=== PATIENT | male | born 1930 | race Caucasian/White ===

== ENCOUNTER → 2016-03-31 | Outpatient (CLI) | payer MEDICARE, BC ==
[2016-03-31 13:27] LABS: ABSOLUTE EOSINOPHILS # (AUTO) 0.1 10^3/uL (0.0-0.6); ABSOLUTE LYMPHOCYTES (AUTO) 2.3 10^3/uL (0.5-4.7); ABSOLUTE MONOCYTES (AUTO) 0.5 10^3/uL (0.1-1.4); ABSOLUTE NEUT (AUTO) 3.2 10^3/uL (1.7-8.2); BASOPHILS % (AUTO) 0.5 % (0-2); EOSINOPHILS % (AUTO) 1.6 % (0-6); HEMATOCRIT 39.5 % (37.9-51.0); HEMOGLOBIN 13.2 g/dL (13.5-17.0); HGB HCT DIFFERENCE 0.1; LYMPHOCYTES % (AUTO) 37.1 % (13-45); MEAN CORPUSCULAR HEMOGLOBIN 30.5 pg (27.0-33.4); MEAN CORPUSCULAR HGB CONC 33.5 g/dL (32.0-36.0); MEAN CORPUSCULAR VOLUME 91 fl (80-97); MONOCYTES % (AUTO) 8.8 % (3-13); RED BLOOD COUNT 4.33 10^6/uL (4.35-5.55); RED CELL DISTRIBUTION WIDTH 13.1 % (11.5-14.0); WHITE BLOOD COUNT 6.1 10^3/uL (4.0-10.5)
[2016-03-31 15:27] LABS: CREATININE 1.73 mg/dL (0.52-1.25); URINE CREATININE 64.4 mg/dL (22-328)
[2016-04-01 09:59] LABS: PSA % FREE 52.5 % (.); PSA FREE 1.05 ng/mL
[2016-04-02 12:57] LABS: PROTEIN TOTAL UR 24HR 118.3 mg/24 hr (30.0-150.0)
== END ==
LOC: OD 11:55
PROVIDERS: ATTEND Urology
DX: N40.1 Benign prostatic hyperplasia with lower urinary tract symptoms (principal); I10 Essential (primary) hypertension; K58.9 Irritable bowel syndrome, unspecified; K59.00 Constipation, unspecified
CPT/HCPCS: 36415; 82575; 84154; 84156; 85025

== ENCOUNTER 2016-04-29 13:42 | Inpatient (IN) | payer MEDICARE, BC ==
[2016-04-29] MEDS ORDERED: NORMAL SALINE 1000 ML 1,000 ML IV ONE ×2 (14:02→16:00)
[2016-04-29] MEDS ORDERED: IPRATROPIUM/ALBUTEROL 0.5-2.5 MG/3 ML AMPUL NEB ONE (14:02)
--- NOTE | 2016-04-29 14:02 | ER Document Report ---
ED General - General Time seen by provider: 13:55 Mode of Arrival: Medic Information source: Patient TRAVEL OUTSIDE OF THE [place] IN LAST 30 DAYS: No - HPI Onset: Other - see HPI note Associated symptoms: Productive cough, Rhinnorhea, Weakness <SKYLER LIMA - Last Filed: 04/29/16 14:22> <MICHELLE GARZA - Last Filed: 04/30/16 17:30> - General Stated Complaint: FLU LIKE SYMPTOMS Notes: Patient is a 85 year old male presenting to the emergency with complaints of weakness, cough, and congestion. Patient was seen by a MD on Thursday and was given Augmentin. Patient has had a productive cough and some nasal rhinorrhea that started on Thursday. Patient has had some near-syncope events and weakness that has been progressingly getting worse. EMS states the patient's blood pressure was 90/50 but has increased some since then. Patient has a history of multiple MT, CAD, hypertension and hypercholesterolemia. Patient did not receive a flu vaccination this year. (SKYLER LIMA) - Related Data Allergies/Adverse Reactions: No Known Allergies Allergy (Verified 04/30/16 01:22) Home Medications: Current Home Medications Amox Tr/Potassium Clavulanate [Augmentin 875-125 mg Tablet] 1 tab PO Q12 [History] Dutasteride [Avodart] 0.5 mg PO DAILY 04/29/16 [History] Levofloxacin [Levaquin 500 mg Tablet] 500 mg PO DAILY 04/29/16 [History] Lisinopril [Prinivil] 20 mg PO Q12 04/29/16 [History] Metoprolol Tartrate [Lopressor 50 mg Tablet] 50 mg PO Q12 04/29/16 [History] Simvastatin [Zocor 40 mg Tablet] 40 mg PO QPM 04/29/16 [History] Tamsulosin HCl [Flomax 0.4 mg Cap.sr] 0.4 mg PO DAILY 04/29/16 [History] Aspirin [Ecotrin 81 mg EC Tablet] 81 mg PO DAILY 04/30/16 [History] Ciprofloxacin HCl [Cipro 500 mg Tablet] 1 tab PO BID 04/30/16 [History] Past Medical History - General Information source: Patient - Social History Smoking Status: Unknown if Ever Smoked Family History: None - Past Medical History Cardiac Medical History: Reports: Hx Coronary Artery Disease, Hx Heart Attack - several, no cath or stents, Hx Hypercholesterolemia, Hx Hypertension Past Surgical History: Reports: Hx Orthopedic Surgery - right ankle <SKYLER LIMA - Last Filed: 04/29/16 14:22> Review of Systems - Review of Systems Constitutional: No symptoms reported EENT: See HPI, Nose congestion Cardiovascular: No symptoms reported Respiratory: See HPI, Cough Gastrointestinal: No symptoms reported Genitourinary: No symptoms reported Male Genitourinary: No symptoms reported Musculoskeletal: No symptoms reported Skin: No symptoms reported Hematologic/Lymphatic: No symptoms reported Neurological/Psychological: See HPI, Weakness -: Yes All other systems reviewed and negative <SKYLER LIMA - Last Filed: 04/29/16 14:22> Physical Exam - Vital signs Interpretation: Hypotensive - with EMS 90/50 - General General appearance: Appears well, Alert In distress: Mild - HEENT Head: Normocephalic, Atraumatic Eyes: Normal Pupils: PERRL Mucous membranes: Dry - Respiratory Respiratory status: No respiratory distress Chest status: Nontender Breath sounds: Other - some wheezes and rhonchi throughout Chest palpation: Normal - Cardiovascular Rhythm: Regular Heart sounds: Normal auscultation Murmur: No - Abdominal Inspection: Normal Distension: No distension Bowel sounds: Normal Tenderness: Nontender Organomegaly: No organomegaly - Back Back: Normal, Nontender - Extremities General upper extremity: Normal inspection, Normal ROM, Normal strength General lower extremity: Normal inspection, Normal ROM, Normal strength. No: Edema - Neurological Neuro grossly intact: Yes Cognition: Normal Orientation: AAOx4 [place] Coma Scale Eye Opening: Spontaneous [place] Coma Scale Verbal: Oriented [place] Coma Scale Motor: Obeys Commands [place] Coma Scale Total: 15 Speech: Normal - Psychological Associated symptoms: Normal affect, Normal mood - Skin Skin Temperature: Warm Skin Moisture: Dry <SAMIASKYLER - Last Filed: 04/29/16 14:22> Course - Laboratory Result Diagrams: 04/29/16 14:05 04/29/16 14:05 <SKYLER ILMA - Last Filed: 04/29/16 14:22> - Laboratory Result Diagrams: 04/30/16 03:40 04/30/16 03:40 - Diagnostic Test Radiology reviewed: Image reviewed, Reports reviewed - Chest x-ray shows multifocal airspace disease most notably in the lingula and left lower lobe - EKG Interpretation by Me EKG shows normal: Sinus rhythm, [place], Intervals, QRS Complexes, ST-T Waves Rate: Normal - 77 Rhythm: NSR When compared to previous EKG there are: Previous EKG unavailable - Consults Dr. Hooper Time consulted: 18:00 Consulted provider: will come to ER <MICHELLE GARZA - Last Filed: 04/30/16 17:30> - Vital Signs Vital signs: Temp Pulse Resp BP Pulse Ox 98.2 F 86 16 151/54 H 98 04/30/16 08:37 04/30/16 14:14 04/30/16 14:14 04/30/16 08:37 04/30/16 14:14 - Laboratory Laboratory results interpreted by me: 04/29/16 04/29/16 14:05 14:05 RBC 4.07 L Hgb 12.3 L Hct 37.0 L Plt Count 137 L Monocytes % 15.7 H Carbon Dioxide 21 L BUN 46 H Creatinine 2.16 H Est GFR ( Amer) 35 L Est GFR (Non-Af Amer) 29 L Albumin 3.4 L Critical Care Note - Critical Care Note Total time excluding time spent on procedures (mins): 35 <MICHELLE GARZA - Last Filed: 04/30/16 17:30> Discharge <SKYLER LIMA - Last Filed: 04/29/16 14:22> - Discharge Admitting Provider: Hospitalist Unit Admitted: Telemetry <MICHELLE GARZA - Last Filed: 04/30/16 17:30> - Discharge Clinical Impression: Influenza-like illness, Dehydration, Renal insufficiency, Multifocal pneumonia Hypotension Qualifiers: Hypotension type: unspecified hypotension type Qualified Code(s): I95.9 - Hypotension, unspecified Condition: Stable Disposition: ADMITTED INPATIENT Scribe Attestation: 04/29/16 18:08 I personally performed the services described in the documentation, reviewed and edited the documentation which was dictated to the scribe in my presence, and it accurately records my words and actions. (MICHELLE GARZA) Scribe Documentation - Scribe Written by Scralphonso:: Skyler Lima 04/29/16 14:20 acting as scribe for :: Lorraine <EDGREN,SKYLER - Last Filed: 04/29/16 14:22>
[2016-04-29 14:37] LABS: ABSOLUTE LYMPHOCYTES (AUTO) 1.7 10^3/uL (0.5-4.7); ABSOLUTE NEUT (AUTO) 3.5 10^3/uL (1.7-8.2); BASOPHILS % (AUTO) 0.2 % (0-2); EOSINOPHILS % (AUTO) 0.2 % (0-6); HEMOGLOBIN 12.3 g/dL (13.5-17.0); HGB HCT DIFFERENCE -0.1; LYMPHOCYTES % (AUTO) 27.5 % (13-45); MEAN CORPUSCULAR HEMOGLOBIN 30.1 pg (27.0-33.4); MEAN CORPUSCULAR HGB CONC 33.2 g/dL (32.0-36.0); MEAN CORPUSCULAR VOLUME 91 fl (80-97); MONOCYTES % (AUTO) 15.7 % (3-13); RED BLOOD COUNT 4.07 10^6/uL (4.35-5.55); RED CELL DISTRIBUTION WIDTH 13.4 % (11.5-14.0); SEGMENTED NEUTROPHILS % (AUTO) 56.4 % (42-78); WHITE BLOOD COUNT 6.3 10^3/uL (4.0-10.5)
[2016-04-29 14:44] LABS: ALANINE AMINOTRANSFERASE 28 U/L (21-72); ALBUMIN 3.4 g/dL (3.5-5.0); ALKALINE PHOSPHATASE 78 U/L (38-126); ANION GAP 13 (5-19); ASPARTATE AMINO TRANSFERASE 36 U/L (17-59); BILIRUBIN,TOTAL 0.4 mg/dL (0.2-1.3); BLOOD UREA NITROGEN 46 mg/dL (7-20); CALCIUM 8.7 mg/dL (8.4-10.2); CARBON DIOXIDE 21 mmol/L (22-30); CHLORIDE 106 mmol/L (98-107); CREATININE RESULT 2.16 mg/dL (0.52-1.25); GLUCOSE 109 mg/dL (75-110); POTASSIUM 4.7 mmol/L (3.6-5.0); SODIUM 139.6 mmol/L (137-145); TOTAL PROTEIN 6.3 g/dL (6.3-8.2)
[2016-04-29 16:02] LABS: ADD ON TESTING BLD IN LAB ACKNOWLEDGE
[2016-04-29 16:20] LABS: CREATINE KINASE 133 U/L (55-170)
[2016-04-29 16:50] LABS: CREATINE KINASE MB 1.03 ng/mL (<4.55)
[2016-04-29 16:51] LABS: TROPONIN I < 0.012 ng/mL
[2016-04-29] MEDS ORDERED: CEFTRIAXONE 1 GM/D5W RTU 50 ML IV ONE (17:48)
[2016-04-29] MEDS ORDERED: AZITHROMYCIN 250 MG TABLET PO ONE (17:49)
[2016-04-29] MEDS ORDERED: ALBUTEROL SULFATE 0.083% NEB 2.5 MG/3 ML AMPUL NEB ONE (17:49)
--- NOTE | 2016-04-29 18:22 | EKG REPORT ---
SEVERITY:- ABNORMAL ECG - NORMAL SINUS RHYTHM NONSPECIFIC ST-T CHANGES- INFERIOR LEADS : Confirmed by: Zacarias Ugarte MD 29-Apr-2016 18:21:30
[2016-04-29] MEDS ORDERED: NORMAL SALINE 1000 ML 1,000 ML IV PRN (18:45)
[2016-04-29] MEDS ORDERED: LEVALBUTEROL HCL NEB 1.25 MG/3 ML AMPUL NEB PRN (18:45)
[2016-04-29] MEDS ORDERED: ONDANSETRON HCL INJ/PF 4 MG/2 ML SDV IV PRN (18:45)
[2016-04-29] MEDS ORDERED: PHARMACY COMMUNICATION ORDER MC NR (19:00)
--- NOTE | 2016-04-29 20:14 | PDOC H&P ---
History of Present Illness Admission Date/PCP: 04/29/16 18:38 JUDITH COBURN, PSYCHOLOGICAL TESTS SALES AGENT-C History of Present Illness: ALLAN PAUL is a 85 year old male who presents with syncope. Patient reports he started feeling ill on Thursday and on Thursday had a fever of up to 102.4. He went to his primary care physician and was given Augmentin. Patient continued to have a cough which is productive of clear to greenish sputum. Patient then reported today he wasn't feeling well and was sitting in a chair he subsequently syncopized in the presence of his daughter and had a positive loss of consciousness with a loss of bladder function without any generalized tonic-clonic activity noted. She reports that she helped him to the floor from a chair at the direction of the of 911. She reports the whole episode lasted approximately 5 minutes. After patient awoke he had an episode of diarrhea. There is no hematochezia or melena. He has had some nausea and some slight abdominal tenderness. He was slightly altered afterwards lasting only a minute or 2. She did report that his lip was turning blue during this episode. Patient is found to have pneumonia and have failed outpatient Augmentin here in the emergency department. He is referred to hospital service for admission. Past Medical History Past Medical History: Chronic kidney disease, coronary artery disease, myocardial infarction, melanoma of left ear, hypertension, BPH Cardiac Medical History: Reports: Coronary Artery Disease, Myocardial Infarction - several, no cath or stents, Hyperlipidema, Hypertension Past Surgical History Past Surgical History: Reports: Orthopedic Surgery - right ankle, Other - Left ear melanoma Social History Smoking Status: Never Smoker Frequency of Alcohol Use: None Hx Recreational Drug Use: No Hx Prescription Drug Abuse: No - Advance Directive Resuscitation Status: Do Not Resuscitate Surrogate healthcare decision maker:: Chapis Dasilva, daughter Family History Family History: CAD, Malignancy Parental Family History Reviewed: Yes Children Family History Reviewed: Yes Sibling(s) Family History Reviewed.: Yes Medication/Allergy Home Medications: Amox Tr/Potassium Clavulanate [Augmentin 875-125 mg Tablet] 1 tab PO Q12 Dutasteride [Avodart] 0.5 mg PO DAILY 04/29/16 Levofloxacin [Levaquin 500 mg Tablet] 500 mg PO DAILY 04/29/16 Lisinopril [Prinivil] 20 mg PO Q12 04/29/16 Metoprolol Tartrate [Lopressor 50 mg Tablet] 50 mg PO Q12 04/29/16 Simvastatin [Zocor 40 mg Tablet] 40 mg PO QPM 04/29/16 Tamsulosin HCl [Flomax 0.4 mg Cap.sr] 0.4 mg PO DAILY 04/29/16 Allergies/Adverse Reactions: No Known Allergies Allergy (Unverified 06/10/15 14:33) Review of Systems Constitutional: PRESENT: chills, fatigue, fever(s), weakness. ABSENT: anorexia , headache(s), night sweats, weight gain, weight loss Eyes: ABSENT: visual disturbances Ears: ABSENT: hearing changes Cardiovascular: ABSENT: chest pain, dyspnea on exertion, edema, orthropnea, palpitations Respiratory: PRESENT: cough, dyspnea, sputum. ABSENT: hemoptysis Gastrointestinal: PRESENT: abdominal pain, diarrhea, nausea. ABSENT: constipation, hematemesis, hematochezia, melena, vomiting Genitourinary: PRESENT: difficulty urinating. ABSENT: dysuria, hematuria Musculoskeletal: ABSENT: joint swelling Integumentary: ABSENT: rash, wounds Neurological: PRESENT: syncope. ABSENT: abnormal gait, abnormal movements, abnormal speech, confusion, convulsions, dizziness, focal weakness Psychiatric: ABSENT: anxiety, depression, homidical ideation, suicidal ideation Endocrine: ABSENT: cold intolerance, heat intolerance, polydipsia, polyuria Hematologic/Lymphatic: ABSENT: easy bleeding, easy bruising Physical Exam Vital Signs: Temp Pulse Resp BP Pulse Ox 20 143/69 H 94 04/29/16 19:00 04/29/16 16:01 04/29/16 19:00 General appearance: PRESENT: mild distress - Ill-appearing, well-developed, well -nourished Head exam: PRESENT: atraumatic, normocephalic Eye exam: PRESENT: conjunctiva pink, EOMI, PERRLA. ABSENT: scleral icterus Ear exam: PRESENT: normal external ear exam, TM's normal bilaterally Mouth exam: PRESENT: moist, neck supple, tongue midline Throat exam: PRESENT: post pharyngeal erythema. ABSENT: tonsillar erythema, tonsillar exudate, tonsillogmegaly Neck exam: PRESENT: full ROM. ABSENT: JVD, lymphadenopathy, tenderness, thyromegaly, tracheal deviation Respiratory exam: PRESENT: prolonged expiratory phas, rhonchi - Bilateral, symmetrical, tachypnea, unlabored, wheezes - Bilateral. ABSENT: crackles, decreased breath sounds, rales Cardiovascular exam: PRESENT: RRR, +S1, +S2. ABSENT: diastolic murmur, gallop, rubs, systolic murmur Pulses: PRESENT: normal dorsalis pedis pul Vascular exam: PRESENT: normal capillary refill GI/Abdominal exam: PRESENT: normal bowel sounds, soft. ABSENT: distended, firm , guarding, mass, organolmegaly, rebound, rigid, tenderness Rectal exam: PRESENT: deferred Extremities exam: PRESENT: full ROM. ABSENT: calf tenderness, clubbing, pedal edema Neurological exam: PRESENT: alert, awake, oriented to person, oriented to place , oriented to time, oriented to situation, CN II-XII grossly intact. ABSENT: motor sensory deficit Psychiatric exam: PRESENT: appropriate affect, normal mood. ABSENT: homicidal ideation, suicidal ideation Skin exam: PRESENT: dry, intact, warm. ABSENT: cyanosis, rash Results Impressions: Chest X-Ray 04/29/16 14:01 IMPRESSION: PATCHY MULTIFOCAL AIRSPACE DISEASE ABOVE COMPATIBLE WITH PNEUMONIA. RECOMMEND FOLLOWUP RADIOGRAPHS IN 4 TO 6 WEEKS TO ENSURE RESOLUTION. Assessment & Plan - Diagnosis (1) Multifocal pneumonia Is this a current diagnosis for this admission?: YesPlan: We'll place patient on Levaquin and Rocephin. Scheduled nebulized treatments. Sputum culture. Concern is patient did fail outpatient Augmentin. (2) Acute on chronic renal failure Is this a current diagnosis for this admission?: YesPlan: Patient is artery receive 2 L in the emergency department. His baseline creatinine is approximately 1.5-1.7. Will give gentle resuscitation with normal saline of 43 mils an hour. (3) Syncope Qualifiers: Syncope type: vasovagal syncope Qualified Code(s): R55 - Syncope and collapse Is this a current diagnosis for this admission?: YesPlan: Patient likely suffered from vasovagal syncope or orthostatic syncope due to his dehydration. Patient only lost control of his bowels after waking. Patient does have chronic prostatic issues which makes his urinary loss more unreliable. His daughter witnessed episode and no isolated tonic-clonic activity was noted. (4) Diarrhea Qualifiers: Diarrhea type: unspecified type Qualified Code(s): R19.7 - Diarrhea , unspecified Is this a current diagnosis for this admission?: YesPlan: Place patient on Bacid. Obtain C. difficile. (5) Dehydration Is this a current diagnosis for this admission?: YesPlan: Gentle rehydration (6) Hypotension Qualifiers: Hypotension type: unspecified hypotension type Qualified Code(s): I95.9 - Hypotension, unspecified Is this a current diagnosis for this admission?: Yes - Time Time Spent: 50 to 70 Minutes Medications reviewed and adjusted accordingly: Yes - Inpatient Certification Based on my medical assessment, after consideration of the patient's comorbidities, presenting symptoms, or acuity I expect that the services needed warrant INPATIENT care.: Yes I certify that my determination is in accordance with my understanding of Medicare's requirements for reasonable and necessary INPATIENT services [42 CFR 412.3e].: Yes Medical Necessity: Failure to Improve With Outpatient Therapy, Need for Nebulizer Therapy and Monitoring of Response, Need for IV Antibiotics Post Hospital Care: D/C Inside Sales Consultant Documentation
[2016-04-29 20:31] LABS: APPEARANCE,URINE CLEAR; BILIRUBIN,URINE NEGATIVE (NEGATIVE); GLUCOSE, URINE NEGATIVE (NEGATIVE); KETONES,URINE TRACE mg/dL (NEGATIVE); LEUKOCYTE ESTERASE,URINE NEGATIVE (NEGATIVE); NITRITE,URINE NEGATIVE (NEGATIVE); PROTEIN,URINE NEGATIVE (NEGATIVE); UROBILINOGEN,URINE NEGATIVE mg/dL (<2.0)
[2016-04-29] MEDS: IPRATROPIUM/ALBUTEROL 0.5-2.5 MG/3 ML AMPUL NEB SCH (20:36)
[2016-04-29] MEDS: GUAIFENESIN 600 MG TABLET.SA PO SCH (21:38)
[2016-04-29] MEDS: HEPARIN SOD (PORCINE) 5,000 UNIT/ML 1 ML SYRINGE SUBCUT SCH (21:39)
[2016-04-29] MEDS ORDERED: LEVOFLOXACIN 750 MG/D5W RTU 750 MG/150 ML RTUPB IV SCH (22:00)
[2016-04-29 22:32] LABS: CREATINE KINASE MB 1.06 ng/mL (<4.55)
[2016-04-29 22:35] LABS: TROPONIN I < 0.012 ng/mL
[2016-04-30] MEDS ORDERED: INFLUENZA ADLT QUAD (36MOS+) 2016-17 VAC 0.5 ML SYR IM PRN (01:02)
[2016-04-30 03:55] LABS: ABSOLUTE LYMPHOCYTES (AUTO) 1.4 10^3/uL (0.5-4.7); ABSOLUTE MONOCYTES (AUTO) 0.7 10^3/uL (0.1-1.4); ABSOLUTE NEUT (AUTO) 2.3 10^3/uL (1.7-8.2); BASOPHILS % (AUTO) 0.2 % (0-2); EOSINOPHILS % (AUTO) 0.1 % (0-6); HEMATOCRIT 31.3 % (37.9-51.0); HEMOGLOBIN 10.6 g/dL (13.5-17.0); HGB HCT DIFFERENCE 0.5; LYMPHOCYTES % (AUTO) 32.1 % (13-45); MEAN CORPUSCULAR HEMOGLOBIN 30.5 pg (27.0-33.4); MEAN CORPUSCULAR VOLUME 90 fl (80-97); MONOCYTES % (AUTO) 15.7 % (3-13); RED CELL DISTRIBUTION WIDTH 13.7 % (11.5-14.0); SEGMENTED NEUTROPHILS % (AUTO) 51.9 % (42-78); WHITE BLOOD COUNT 4.5 10^3/uL (4.0-10.5)
[2016-04-30 04:12] LABS: ANION GAP 8 (5-19); BLOOD UREA NITROGEN 36 mg/dL (7-20); CALCIUM 8.1 mg/dL (8.4-10.2); CARBON DIOXIDE 22 mmol/L (22-30); CHLORIDE 110 mmol/L (98-107); CREATINE KINASE 186 U/L (55-170); CREATININE RESULT 1.78 mg/dL (0.52-1.25); GLUCOSE 97 mg/dL (75-110); MAGNESIUM 1.7 mg/dL (1.6-2.3); PHOSPHORUS 3.2 mg/dL (2.5-4.5); POTASSIUM 4.4 mmol/L (3.6-5.0); SODIUM 140.4 mmol/L (137-145)
[2016-04-30 04:25] LABS: CREATINE KINASE MB 1.55 ng/mL (<4.55)
[2016-04-30 04:32] LABS: TROPONIN I 0.055 ng/mL
[2016-04-30] MEDS: HEPARIN SOD (PORCINE) 5,000 UNIT/ML 1 ML SYRINGE SUBCUT SCH ×3 (06:14→22:09)
[2016-04-30] MEDS: IPRATROPIUM/ALBUTEROL 0.5-2.5 MG/3 ML AMPUL NEB SCH ×3 (08:16→19:56)
[2016-04-30] MEDS: GUAIFENESIN 600 MG TABLET.SA PO SCH ×2 (09:39→22:07)
[2016-04-30 11:23] LABS: CREATINE KINASE MB 1.92 ng/mL (<4.55); TROPONIN I 0.054 ng/mL
[2016-04-30] MEDS ORDERED: CEFTRIAXONE 1 GM/D5W RTU 1 GM/50 ML RTUPB IV SCH (18:00)
[2016-04-30] MEDS ORDERED: PREDNISONE 20 MG TABLET PO ONE (19:00)
[2016-04-30] MEDS: PIPERACILLIN SODIUM/TAZOBACTAM 3.375 GM in NORMAL SALINE 100 ML IV SCH (20:31)
[2016-04-30] MEDS ORDERED: (PENDING PHARMACY ID) (Lisinopril [Prinivil] 20 MG) PO SCH (22:00)
[2016-04-30] MEDS: METOPROLOL TARTRATE 50 MG TABLET PO SCH (22:07)
[2016-04-30] MEDS: LISINOPRIL 10 MG TABLET PO SCH (22:08)
[2016-05-01] MEDS: HEPARIN SOD (PORCINE) 5,000 UNIT/ML 1 ML SYRINGE SUBCUT SCH ×3 (05:09→21:58)
[2016-05-01] MEDS ORDERED: AMLODIPINE BESYLATE 5 MG TABLET PO ONE (05:15)
[2016-05-01] MEDS: PIPERACILLIN SODIUM/TAZOBACTAM 3.375 GM in NORMAL SALINE 100 ML IV SCH (05:29)
[2016-05-01 06:35] LABS: ABSOLUTE LYMPHOCYTES (AUTO) 0.7 10^3/uL (0.5-4.7); ABSOLUTE MONOCYTES (AUTO) 0.3 10^3/uL (0.1-1.4); ABSOLUTE NEUT (AUTO) 1.7 10^3/uL (1.7-8.2); BASOPHILS % (AUTO) 0.1 % (0-2); HEMATOCRIT 35.2 % (37.9-51.0); HEMOGLOBIN 11.8 g/dL (13.5-17.0); HGB HCT DIFFERENCE 0.2; LYMPHOCYTES % (AUTO) 26.5 % (13-45); MEAN CORPUSCULAR HEMOGLOBIN 30.1 pg (27.0-33.4); MEAN CORPUSCULAR HGB CONC 33.6 g/dL (32.0-36.0); MEAN CORPUSCULAR VOLUME 90 fl (80-97); MONOCYTES % (AUTO) 10.8 % (3-13); RED BLOOD COUNT 3.93 10^6/uL (4.35-5.55); RED CELL DISTRIBUTION WIDTH 13.9 % (11.5-14.0); SEGMENTED NEUTROPHILS % (AUTO) 62.6 % (42-78)
[2016-05-01 06:43] LABS: ANION GAP 11 (5-19); BLOOD UREA NITROGEN 22 mg/dL (7-20); CALCIUM 8.8 mg/dL (8.4-10.2); CARBON DIOXIDE 20 mmol/L (22-30); CHLORIDE 108 mmol/L (98-107); CREATININE RESULT 1.59 mg/dL (0.52-1.25); GLUCOSE 148 mg/dL (75-110); POTASSIUM 5.1 mmol/L (3.6-5.0); SODIUM 139.2 mmol/L (137-145)
[2016-05-01 06:50] LABS: WHITE BLOOD COUNT 2.7 10^3/uL (4.0-10.5)
[2016-05-01] MEDS: IPRATROPIUM/ALBUTEROL 0.5-2.5 MG/3 ML AMPUL NEB SCH ×3 (08:08→19:48)
[2016-05-01] MEDS ORDERED: PHARMACY COMMUNICATION ORDER MC NR (08:15)
--- NOTE | 2016-05-01 08:17 | PDOC PROGRESS REPORT ---
Subjective Progress Note for:: 04/30/16 Subjective:: Patient seen earlier today on morning rounds. Patient reports he's feeling better than yesterday. Patient denies chest pain, abdominal pain, nausea, vomiting, fevers, diarrhea, constipation, headache, new onset weakness. Physical Exam Vital Signs: Temp Pulse Resp BP Pulse Ox 98.2 F 86 16 151/54 H 98 04/30/16 08:37 04/30/16 14:14 04/30/16 14:14 04/30/16 08:37 04/30/16 14:14 Intake & Output 04/29/16 04/30/16 05/01/16 06:59 06:59 06:59 Intake Total 258 585 Output Total 600 500 Balance -342 85 Weight 70.6 kg Exam: General: Awake alert and oriented x3, no acute respiratory distress HEENT: AT/NC, PERRL, EOMI, oropharynx is moist, pink, no scleral icterus, no conjunctival injection Neck: No JVD, trachea midline Chest: Bilateral end expiratory wheezes, scattered rhonchi CV: Regular rate and rhythm, normal S1 and S2, no murmur, rub, or gallop Abdomen: Soft, nontender to palpation, nondistended, active bowel sounds; no rebound, rigidity, or guarding Extremities: No cyanosis, clubbing or edema Neuro: Cranial nerves II through XII are grossly intact without focal deficits; awake alert and oriented x3 Psych: Normal mood and affect Results Laboratory Results: 04/30/16 03:40 04/30/16 03:40 04/29/16 04/30/16 04/30/16 20:20 03:40 03:40 WBC 4.5 RBC 3.50 L Hgb 10.6 L Hct 31.3 L MCV 90 MCH 30.5 MCHC 34.0 RDW 13.7 Plt Count 105 L Seg Neutrophils % 51.9 Lymphocytes % 32.1 Monocytes % 15.7 H Eosinophils % 0.1 Basophils % 0.2 Absolute Neutrophils 2.3 Absolute Lymphocytes 1.4 Absolute Monocytes 0.7 Absolute Eosinophils 0.0 Absolute Basophils 0.0 Sodium 140.4 Potassium 4.4 Chloride 110 H Carbon Dioxide 22 Anion Gap 8 BUN 36 H Creatinine 1.78 H Est GFR ( Amer) 44 L Est GFR (Non-Af Amer) 36 L Glucose 97 Calcium 8.1 L Phosphorus 3.2 Magnesium 1.7 TSH Urine Color YELLOW Urine Appearance CLEAR Urine pH 5.0 Ur Specific [place] 1.010 Urine Protein NEGATIVE Urine Glucose (UA) NEGATIVE Urine Ketones TRACE H Urine Blood SMALL H Urine Nitrite NEGATIVE Ur Leukocyte Esterase NEGATIVE Urine WBC (Auto) 1 Urine RBC (Auto) 0 04/30/16 03:40 WBC RBC Hgb Hct MCV MCH MCHC RDW Plt Count Seg Neutrophils % Lymphocytes % Monocytes % Eosinophils % Basophils % Absolute Neutrophils Absolute Lymphocytes Absolute Monocytes Absolute Eosinophils Absolute Basophils Sodium Potassium Chloride Carbon Dioxide Anion Gap BUN Creatinine Est GFR ( Amer) Est GFR (Non-Af Amer) Glucose Calcium Phosphorus Magnesium TSH 1.82 Urine Color Urine Appearance Urine pH Ur Specific [place] Urine Protein Urine Glucose (UA) Urine Ketones Urine Blood Urine Nitrite Ur Leukocyte Esterase Urine WBC (Auto) Urine RBC (Auto) 04/29/16 04/29/16 04/30/16 21:16 21:16 03:40 Creatine Kinase 135 CK-MB (CK-2) 1.06 1.55 Troponin I < 0.012 0.055 04/30/16 04/30/16 04/30/16 03:40 10:37 10:37 Creatine Kinase 186 H 286 H CK-MB (CK-2) 1.92 Troponin I 0.054 Impressions: Chest X-Ray 04/29/16 14:01 IMPRESSION: PATCHY MULTIFOCAL AIRSPACE DISEASE ABOVE COMPATIBLE WITH PNEUMONIA. RECOMMEND FOLLOWUP RADIOGRAPHS IN 4 TO 6 WEEKS TO ENSURE RESOLUTION. Assessment & Plan - Diagnosis (1) Multifocal pneumonia Is this a current diagnosis for this admission?: YesPlan: We'll place patient on Levaquin and Zosyn. Scheduled nebulized treatments. Sputum culture. Concern is patient did fail outpatient Augmentin. (2) Acute on chronic renal failure Is this a current diagnosis for this admission?: YesPlan: Improving. His baseline creatinine is approximately 1.5-1.7. Encourage po intake of fluid (3) Syncope Qualifiers: Syncope type: vasovagal syncope Qualified Code(s): R55 - Syncope and collapse Is this a current diagnosis for this admission?: YesPlan: Patient likely suffered from vasovagal syncope or orthostatic syncope due to his dehydration. Patient only lost control of his bowels after waking. Patient does have chronic prostatic issues which makes his urinary loss more unreliable. His daughter witnessed episode and no isolated tonic-clonic activity was noted. (4) Diarrhea Qualifiers: Diarrhea type: unspecified type Qualified Code(s): R19.7 - Diarrhea , unspecified Is this a current diagnosis for this admission?: YesPlan: none further (5) Dehydration Is this a current diagnosis for this admission?: Yes (6) Hypotension Qualifiers: Hypotension type: unspecified hypotension type Qualified Code(s): I95.9 - Hypotension, unspecified Is this a current diagnosis for this admission?: Yes - Time Time Spent with patient: 25-34 minutes Medications reviewed and adjusted accordingly: Yes
[2016-05-01] MEDS: METOPROLOL TARTRATE 50 MG TABLET PO SCH ×2 (09:52→21:54)
[2016-05-01] MEDS: DUTASTERIDE 0.5 MG CAPSULE PO SCH (09:53)
[2016-05-01] MEDS: PREDNISONE 20 MG TABLET PO SCH ×2 (09:53→17:31)
[2016-05-01] MEDS: DOCUSATE SODIUM 100 MG CAPSULE PO SCH ×2 (09:53→17:31)
[2016-05-01] MEDS: TAMSULOSIN HCL 0.4 MG CAP.SR.24H PO SCH (09:54)
[2016-05-01] MEDS: CEFEPIME 1 GM/D5W RTU 50 ML IV SCH ×2 (09:54→21:54)
[2016-05-01] MEDS: ASPIRIN 81 MG TABLET, ENT COATED PO SCH (09:54)
[2016-05-01] MEDS: GUAIFENESIN 600 MG TABLET.SA PO SCH ×2 (09:54→21:54)
[2016-05-01] MEDS: AZITHROMYCIN 250 MG TABLET PO SCH (09:54)
[2016-05-01] MEDS: LISINOPRIL 10 MG TABLET PO SCH ×2 (09:54→21:54)
[2016-05-01] MEDS: AMLODIPINE BESYLATE 5 MG TABLET PO SCH ×2 (09:55→21:54)
[2016-05-01 10:38] LABS: ANION GAP 13 (5-19); BLOOD UREA NITROGEN 23 mg/dL (7-20); CALCIUM 9.3 mg/dL (8.4-10.2); CARBON DIOXIDE 23 mmol/L (22-30); CHLORIDE 106 mmol/L (98-107); CREATININE RESULT 1.66 mg/dL (0.52-1.25); GLUCOSE 160 mg/dL (75-110); POTASSIUM 4.6 mmol/L (3.6-5.0); SODIUM 141.9 mmol/L (137-145)
--- NOTE | 2016-05-01 11:40 | Physician Advisory Note ---
Physician Advisor ProgressNote .: Pursuant to the [facility], I have reviewed the medical record for this patient. Physician Advisor Statement: Nice documentation overall, as usual. All I could add is: 1. Most likely type bacteria in the PNA = gram +? gram neg? ... 2. CKD = stage 3. CK
--- NOTE | 2016-05-01 19:31 | PDOC PROGRESS REPORT ---
Subjective Progress Note for:: 05/01/16 Subjective:: Patient seen later this morning on morning rounds. Patient reports he's feeling much better today. Patient's white count has gone down significantly on Zosyn. Patient denies chest pain, shortness of breath, abdominal pain, nausea, vomiting , fevers, chills, diarrhea, constipation, headache, new onset weakness. Physical Exam Vital Signs: Temp Pulse Resp BP Pulse Ox 97.7 F 55 L 16 182/68 H 93 05/01/16 04:05 05/01/16 04:05 05/01/16 04:05 05/01/16 04:05 05/01/16 04:05 Intake & Output 04/30/16 05/01/16 05/02/16 06:59 06:59 06:59 Intake Total 258 1951 Output Total 600 1700 Balance -342 251 Weight 70.6 kg 72.2 kg Exam: General: Awake alert and oriented x3, no acute respiratory distress HEENT: AT/NC, PERRL, EOMI, oropharynx is moist, pink, no scleral icterus, no conjunctival injection Neck: No JVD, trachea midline Chest: Light Bilateral end expiratory wheezes, occasional scattered rhonchi, overall improved CV: Regular rate and rhythm, normal S1 and S2, no murmur, rub, or gallop Abdomen: Soft, nontender to palpation, nondistended, active bowel sounds; no rebound, rigidity, or guarding Extremities: No cyanosis, clubbing or edema Neuro: Cranial nerves II through XII are grossly intact without focal deficits; awake alert and oriented x3 Psych: Normal mood and affect Results Laboratory Results: 05/01/16 05:50 05/01/16 05:50 05/01/16 05/01/16 05:50 05:50 WBC 2.7 L D RBC 3.93 L Hgb 11.8 L Hct 35.2 L MCV 90 MCH 30.1 MCHC 33.6 RDW 13.9 Plt Count 128 L Seg Neutrophils % 62.6 Lymphocytes % 26.5 Monocytes % 10.8 Eosinophils % 0.0 Basophils % 0.1 Absolute Neutrophils 1.7 Absolute Lymphocytes 0.7 Absolute Monocytes 0.3 Absolute Eosinophils 0.0 Absolute Basophils 0.0 Sodium 139.2 Potassium 5.1 H Chloride 108 H Carbon Dioxide 20 L Anion Gap 11 BUN 22 H Creatinine 1.59 H Est GFR ( Amer) 50 L Est GFR (Non-Af Amer) 41 L Glucose 148 H Calcium 8.8 04/29/16 04/29/16 04/30/16 21:16 21:16 03:40 Creatine Kinase 135 CK-MB (CK-2) 1.06 1.55 Troponin I < 0.012 0.055 04/30/16 04/30/16 04/30/16 03:40 10:37 10:37 Creatine Kinase 186 H 286 H CK-MB (CK-2) 1.92 Troponin I 0.054 Impressions: Chest X-Ray 04/29/16 14:01 IMPRESSION: PATCHY MULTIFOCAL AIRSPACE DISEASE ABOVE COMPATIBLE WITH PNEUMONIA. RECOMMEND FOLLOWUP RADIOGRAPHS IN 4 TO 6 WEEKS TO ENSURE RESOLUTION. Assessment & Plan - Diagnosis (1) Multifocal pneumonia Is this a current diagnosis for this admission?: YesPlan: Patient with community-acquired pneumonia. Have transition patient to azithromycin and cefepime. Patient apparently also failed Levaquin as an outpatient. Scheduled nebulized treatments. Sputum culture. Concern is patient did fail outpatient Augmentin and Levaquin. Repeat chest x-ray today. Send urine Legionella and pneumococcal antibodies. (2) Acute on chronic renal failure Is this a current diagnosis for this admission?: YesPlan: Improving. His baseline creatinine is approximately 1.5-1.7. Encourage po intake of fluid (3) Syncope Qualifiers: Syncope type: vasovagal syncope Qualified Code(s): R55 - Syncope and collapse Is this a current diagnosis for this admission?: YesPlan: Patient likely suffered from vasovagal syncope or orthostatic syncope due to his dehydration. Patient only lost control of his bowels after waking. Patient does have chronic prostatic issues which makes his urinary loss more unreliable. His daughter witnessed episode and no isolated tonic-clonic activity was noted. (4) Diarrhea Qualifiers: Diarrhea type: unspecified type Qualified Code(s): R19.7 - Diarrhea , unspecified Is this a current diagnosis for this admission?: Yes (5) Dehydration Is this a current diagnosis for this admission?: Yes (6) Hypotension Qualifiers: Hypotension type: unspecified hypotension type Qualified Code(s): I95.9 - Hypotension, unspecified Is this a current diagnosis for this admission?: Yes - Time Time Spent with patient: 25-34 minutes Medications reviewed and adjusted accordingly: Yes Anticipated discharge: Home Within: within 48 hours
[2016-05-02] MEDS: HEPARIN SOD (PORCINE) 5,000 UNIT/ML 1 ML SYRINGE SUBCUT SCH ×3 (05:46→21:30)
[2016-05-02 08:21] LABS: ABSOLUTE LYMPHOCYTES (AUTO) 1.2 10^3/uL (0.5-4.7); ABSOLUTE MONOCYTES (AUTO) 0.5 10^3/uL (0.1-1.4); ABSOLUTE NEUT (AUTO) 3.7 10^3/uL (1.7-8.2); BASOPHILS % (AUTO) 0.1 % (0-2); HEMATOCRIT 36.7 % (37.9-51.0); HEMOGLOBIN 12.3 g/dL (13.5-17.0); HGB HCT DIFFERENCE 0.2; LYMPHOCYTES % (AUTO) 21.7 % (13-45); MEAN CORPUSCULAR HGB CONC 33.5 g/dL (32.0-36.0); MEAN CORPUSCULAR VOLUME 90 fl (80-97); MONOCYTES % (AUTO) 10.1 % (3-13); RED CELL DISTRIBUTION WIDTH 13.7 % (11.5-14.0); SEGMENTED NEUTROPHILS % (AUTO) 68.1 % (42-78); WHITE BLOOD COUNT 5.4 10^3/uL (4.0-10.5)
[2016-05-02 09:00] LABS: ANION GAP 11 (5-19); BLOOD UREA NITROGEN 29 mg/dL (7-20); CALCIUM 9.2 mg/dL (8.4-10.2); CARBON DIOXIDE 20 mmol/L (22-30); CHLORIDE 107 mmol/L (98-107); CREATININE RESULT 1.54 mg/dL (0.52-1.25); GLUCOSE 129 mg/dL (75-110); POTASSIUM 4.6 mmol/L (3.6-5.0); SODIUM 137.5 mmol/L (137-145)
[2016-05-02] MEDS: IPRATROPIUM/ALBUTEROL 0.5-2.5 MG/3 ML AMPUL NEB SCH ×3 (09:09→20:08)
[2016-05-02] MEDS: DOCUSATE SODIUM 100 MG CAPSULE PO SCH ×2 (09:47→17:57)
[2016-05-02] MEDS: TAMSULOSIN HCL 0.4 MG CAP.SR.24H PO SCH (09:47)
[2016-05-02] MEDS: LISINOPRIL 10 MG TABLET PO SCH ×2 (09:47→21:30)
[2016-05-02] MEDS: CEFEPIME 1 GM/D5W RTU 50 ML IV SCH ×2 (09:48→21:30)
[2016-05-02] MEDS: GUAIFENESIN 600 MG TABLET.SA PO SCH ×2 (09:49→21:30)
[2016-05-02] MEDS: AZITHROMYCIN 250 MG TABLET PO SCH (09:49)
[2016-05-02] MEDS: ASPIRIN 81 MG TABLET, ENT COATED PO SCH (09:49)
[2016-05-02] MEDS: METOPROLOL TARTRATE 50 MG TABLET PO SCH ×2 (09:49→21:30)
[2016-05-02] MEDS: AMLODIPINE BESYLATE 5 MG TABLET PO SCH ×2 (09:49→21:30)
[2016-05-02] MEDS: DUTASTERIDE 0.5 MG CAPSULE PO SCH (09:50)
[2016-05-02] MEDS: PREDNISONE 20 MG TABLET PO SCH ×2 (09:50→17:57)
[2016-05-02] MEDS: ACETAMINOPHEN 325 MG TABLET PO PRN (11:08)
[2016-05-02] MEDS ORDERED: ASPIRIN 325 MG TABLET, ENT COATED PO ONE (13:45)
--- NOTE | 2016-05-02 21:22 | PDOC PROGRESS REPORT ---
Subjective Progress Note for:: 05/02/16 Subjective:: Patient seen earlier this morning on morning rounds. Patient reports he's feeling much better today. Patient denies chest pain, shortness of breath, abdominal pain, nausea, vomiting , fevers, chills, diarrhea, constipation, new onset weakness. Patient reports bilateral temporal headache. He reports he takes Excedrin for these at home. Physical Exam Vital Signs: Temp Pulse Resp BP Pulse Ox 98.5 F 80 16 151/81 H 95 05/02/16 20:00 05/02/16 20:10 05/02/16 20:10 05/02/16 20:00 05/02/16 20:00 Intake & Output 05/01/16 05/02/16 05/03/16 06:59 06:59 06:59 Intake Total 2211 1223 1670 Output Total 1700 1200 Balance 835 65 0594 Weight 72.2 kg 72.8 kg Exam: General: Awake alert and oriented x3, no acute respiratory distress HEENT: AT/NC, PERRL, EOMI, oropharynx is moist, pink, no scleral icterus, no conjunctival injection Neck: No JVD, trachea midline Chest: Light Bilateral end expiratory wheezes, otherwise clear to auscultation CV: Regular rate and rhythm, normal S1 and S2, no murmur, rub, or gallop Abdomen: Soft, nontender to palpation, nondistended, active bowel sounds; no rebound, rigidity, or guarding Extremities: No cyanosis, clubbing or edema Neuro: Cranial nerves II through XII are grossly intact without focal deficits; awake alert and oriented x3 Psych: Normal mood and affect Results Laboratory Results: 05/02/16 07:45 05/02/16 07:45 05/02/16 05/02/16 07:45 07:45 WBC 5.4 RBC 4.10 L Hgb 12.3 L Hct 36.7 L MCV 90 MCH 30.0 MCHC 33.5 RDW 13.7 Plt Count 145 L Seg Neutrophils % 68.1 Lymphocytes % 21.7 Monocytes % 10.1 Eosinophils % 0.0 Basophils % 0.1 Absolute Neutrophils 3.7 Absolute Lymphocytes 1.2 Absolute Monocytes 0.5 Absolute Eosinophils 0.0 Absolute Basophils 0.0 Sodium 137.5 Potassium 4.6 Chloride 107 Carbon Dioxide 20 L Anion Gap 11 BUN 29 H Creatinine 1.54 H Est GFR ( Amer) 52 L Est GFR (Non-Af Amer) 43 L Glucose 129 H Calcium 9.2 04/29/16 04/29/16 04/30/16 21:16 21:16 03:40 Creatine Kinase 135 CK-MB (CK-2) 1.06 1.55 Troponin I < 0.012 0.055 04/30/16 04/30/16 04/30/16 03:40 10:37 10:37 Creatine Kinase 186 H 286 H CK-MB (CK-2) 1.92 Troponin I 0.054 Impressions: Chest X-Ray 05/01/16 00:00 IMPRESSION: The diffuse patchy airspace disease noted throughout the lungs has nearly resolved in comparison to the prior study. The pulmonary vascular congestion interstitial prominence is also significantly improved. Assessment & Plan - Diagnosis (1) Multifocal pneumonia Is this a current diagnosis for this admission?: YesPlan: Likely a atypical or possibly gram-negative bacteria. Patient was treated with Levaquin and Augmentin which have good gram-positive coverage. Patient with community-acquired pneumonia. Have transition patient to azithromycin and cefepime. Patient apparently also failed Levaquin as an outpatient. Scheduled nebulized treatments. Sputum culture. Repeat chest x-ray appears to be improved. Send urine Legionella and pneumococcal antibodies. (2) Acute on chronic renal failure Is this a current diagnosis for this admission?: YesPlan: Improving. Baseline CKG stage III. His baseline creatinine is approximately 1.5-1.7. Encourage po intake of fluid (3) Syncope Qualifiers: Syncope type: vasovagal syncope Qualified Code(s): R55 - Syncope and collapse Is this a current diagnosis for this admission?: Yes (4) Diarrhea Qualifiers: Diarrhea type: unspecified type Qualified Code(s): R19.7 - Diarrhea , unspecified Is this a current diagnosis for this admission?: Yes (5) Dehydration Is this a current diagnosis for this admission?: Yes (6) Hypotension Qualifiers: Hypotension type: unspecified hypotension type Qualified Code(s): I95.9 - Hypotension, unspecified Is this a current diagnosis for this admission?: Yes - Time Time Spent with patient: 25-34 minutes Medications reviewed and adjusted accordingly: Yes Anticipated discharge: Home Within: within 48 hours
[2016-05-02] MEDS: LORATADINE 10 MG TABLET PO SCH (21:30)
[2016-05-02] MEDS: FLUTICASONE NASAL SPRAY 50 MCG/SPRY 120 SPRAY/16 GM NASL SCH (23:01)
[2016-05-03 05:30] LABS: ABSOLUTE LYMPHOCYTES (AUTO) 1.1 10^3/uL (0.5-4.7); ABSOLUTE MONOCYTES (AUTO) 0.5 10^3/uL (0.1-1.4); ABSOLUTE NEUT (AUTO) 5.3 10^3/uL (1.7-8.2); BASOPHILS % (AUTO) 0.2 % (0-2); HEMATOCRIT 35.9 % (37.9-51.0); HEMOGLOBIN 12.2 g/dL (13.5-17.0); HGB HCT DIFFERENCE 0.7; LYMPHOCYTES % (AUTO) 15.7 % (13-45); MEAN CORPUSCULAR HEMOGLOBIN 30.2 pg (27.0-33.4); MEAN CORPUSCULAR HGB CONC 33.9 g/dL (32.0-36.0); MEAN CORPUSCULAR VOLUME 89 fl (80-97); MONOCYTES % (AUTO) 7.1 % (3-13); RED BLOOD COUNT 4.04 10^6/uL (4.35-5.55); RED CELL DISTRIBUTION WIDTH 13.7 % (11.5-14.0); WHITE BLOOD COUNT 6.9 10^3/uL (4.0-10.5)
[2016-05-03 06:02] LABS: ANION GAP 10 (5-19); BLOOD UREA NITROGEN 36 mg/dL (7-20); CALCIUM 9.1 mg/dL (8.4-10.2); CARBON DIOXIDE 21 mmol/L (22-30); CHLORIDE 106 mmol/L (98-107); CREATININE RESULT 1.51 mg/dL (0.52-1.25); GLUCOSE 153 mg/dL (75-110); SODIUM 136.9 mmol/L (137-145)
[2016-05-03] MEDS: HEPARIN SOD (PORCINE) 5,000 UNIT/ML 1 ML SYRINGE SUBCUT SCH ×3 (06:49→21:50)
[2016-05-03] MEDS: IPRATROPIUM/ALBUTEROL 0.5-2.5 MG/3 ML AMPUL NEB SCH ×3 (08:57→19:59)
[2016-05-03] MEDS: LISINOPRIL 10 MG TABLET PO SCH ×2 (10:40→21:48)
[2016-05-03] MEDS: TAMSULOSIN HCL 0.4 MG CAP.SR.24H PO SCH (10:41)
[2016-05-03] MEDS: DUTASTERIDE 0.5 MG CAPSULE PO SCH (10:41)
[2016-05-03] MEDS: GUAIFENESIN 600 MG TABLET.SA PO SCH ×2 (10:41→21:49)
[2016-05-03] MEDS: ASPIRIN 81 MG TABLET, ENT COATED PO SCH (10:41)
[2016-05-03] MEDS: AZITHROMYCIN 250 MG TABLET PO SCH (10:41)
[2016-05-03] MEDS: AMLODIPINE BESYLATE 5 MG TABLET PO SCH ×2 (10:42→21:48)
[2016-05-03] MEDS: METOPROLOL TARTRATE 50 MG TABLET PO SCH ×2 (10:42→21:49)
[2016-05-03] MEDS: PREDNISONE 20 MG TABLET PO SCH ×2 (10:42→17:26)
[2016-05-03] MEDS: CEFEPIME 1 GM/D5W RTU 50 ML IV SCH ×2 (10:42→21:48)
[2016-05-03] MEDS: DOCUSATE SODIUM 100 MG CAPSULE PO SCH ×2 (10:43→17:26)
[2016-05-03] MEDS: FLUTICASONE NASAL SPRAY 50 MCG/SPRY 120 SPRAY/16 GM NASL SCH ×2 (10:43→21:49)
--- NOTE | 2016-05-03 16:24 | PDOC PROGRESS REPORT ---
Subjective Progress Note for:: 05/03/16 Subjective:: Patient reports his headache has resolved. He is sitting on the side of the bed eating lunch and reports he feels much better. His daughter is present. Patient denies chest pain, shortness of breath, abdominal pain, nausea, vomiting , fevers, chills, diarrhea, constipation, headache, new onset weakness. Physical Exam Vital Signs: Temp Pulse Resp BP Pulse Ox 98.1 F 98 18 159/73 H 99 05/03/16 00:00 05/03/16 02:00 05/03/16 00:00 05/03/16 00:00 05/03/16 00:00 Intake & Output 05/02/16 05/03/16 05/04/16 06:59 06:59 06:59 Intake Total 1223 1870 Output Total 1200 200 Balance 23 1670 Weight 72.8 kg 70.5 kg Exam: General: Awake alert and oriented x3, no acute respiratory distress HEENT: AT/NC, PERRL, EOMI, oropharynx is moist, pink, no scleral icterus, no conjunctival injection Neck: No JVD, trachea midline Chest: Coarse bilaterally CV: Regular rate and rhythm, normal S1 and S2, no murmur, rub, or gallop Abdomen: Soft, nontender to palpation, nondistended, active bowel sounds; no rebound, rigidity, or guarding Extremities: No cyanosis, clubbing or edema Neuro: Cranial nerves II through XII are grossly intact without focal deficits; awake alert and oriented x3 Psych: Normal mood and affect Results Laboratory Results: 05/03/16 05:16 05/03/16 05:16 05/02/16 05/02/16 05/03/16 07:45 07:45 05:16 WBC 5.4 6.9 RBC 4.10 L 4.04 L Hgb 12.3 L 12.2 L Hct 36.7 L 35.9 L MCV 90 89 MCH 30.0 30.2 MCHC 33.5 33.9 RDW 13.7 13.7 Plt Count 145 L 168 Seg Neutrophils % 68.1 77.0 Lymphocytes % 21.7 15.7 Monocytes % 10.1 7.1 Eosinophils % 0.0 0.0 Basophils % 0.1 0.2 Absolute Neutrophils 3.7 5.3 Absolute Lymphocytes 1.2 1.1 Absolute Monocytes 0.5 0.5 Absolute Eosinophils 0.0 0.0 Absolute Basophils 0.0 0.0 Sodium 137.5 Potassium 4.6 Chloride 107 Carbon Dioxide 20 L Anion Gap 11 BUN 29 H Creatinine 1.54 H Est GFR ( Amer) 52 L Est GFR (Non-Af Amer) 43 L Glucose 129 H Calcium 9.2 05/03/16 05:16 WBC RBC Hgb Hct MCV MCH MCHC RDW Plt Count Seg Neutrophils % Lymphocytes % Monocytes % Eosinophils % Basophils % Absolute Neutrophils Absolute Lymphocytes Absolute Monocytes Absolute Eosinophils Absolute Basophils Sodium 136.9 L Potassium 5.0 Chloride 106 Carbon Dioxide 21 L Anion Gap 10 BUN 36 H Creatinine 1.51 H Est GFR ( Amer) 53 L Est GFR (Non-Af Amer) 44 L Glucose 153 H Calcium 9.1 04/29/16 04/29/16 04/30/16 21:16 21:16 03:40 Creatine Kinase 135 CK-MB (CK-2) 1.06 1.55 Troponin I < 0.012 0.055 04/30/16 04/30/16 04/30/16 03:40 10:37 10:37 Creatine Kinase 186 H 286 H CK-MB (CK-2) 1.92 Troponin I 0.054 Impressions: Chest X-Ray 05/01/16 00:00 IMPRESSION: The diffuse patchy airspace disease noted throughout the lungs has nearly resolved in comparison to the prior study. The pulmonary vascular congestion interstitial prominence is also significantly improved. Assessment & Plan - Diagnosis (1) Multifocal pneumonia Is this a current diagnosis for this admission?: YesPlan: Likely a atypical or possibly gram-negative bacteria. Patient was treated with Levaquin and Augmentin which have good gram-positive coverage. Patient with community-acquired pneumonia. Have transition patient to azithromycin and cefepime. Patient apparently also failed Levaquin as an outpatient. Scheduled nebulized treatments. Sputum culture. Repeat chest x-ray appears to be improved. Pending urine Legionella and pneumococcal antibodies. Currently continue with cefepime and azithromycin as patient has a positive blood culture. (2) Acute on chronic renal failure Is this a current diagnosis for this admission?: YesPlan: Improved Baseline CKG stage III. His baseline creatinine is approximately 1.5-1.7. Encourage po intake of fluid (3) Syncope Qualifiers: Syncope type: vasovagal syncope Qualified Code(s): R55 - Syncope and collapse Is this a current diagnosis for this admission?: YesPlan: Patient likely suffered from vasovagal syncope or orthostatic syncope due to his dehydration. Patient only lost control of his bowels after waking. Patient does have chronic prostatic issues which makes his urinary loss more unreliable. His daughter witnessed episode and no isolated tonic-clonic activity was noted. (4) Diarrhea Qualifiers: Diarrhea type: unspecified type Qualified Code(s): R19.7 - Diarrhea , unspecified Is this a current diagnosis for this admission?: Yes (5) Dehydration Is this a current diagnosis for this admission?: Yes (6) Hypotension Qualifiers: Hypotension type: unspecified hypotension type Qualified Code(s): I95.9 - Hypotension, unspecified Is this a current diagnosis for this admission?: Yes - Time Time Spent with patient: 25-34 minutes Medications reviewed and adjusted accordingly: Yes Anticipated discharge: Home Within: within 48 hours
[2016-05-03] MEDS: LORATADINE 10 MG TABLET PO SCH (21:48)
[2016-05-04] MEDS: HEPARIN SOD (PORCINE) 5,000 UNIT/ML 1 ML SYRINGE SUBCUT SCH ×3 (06:16→21:19)
[2016-05-04] MEDS: ACETAMINOPHEN 325 MG TABLET PO PRN (08:52)
[2016-05-04] MEDS: IPRATROPIUM/ALBUTEROL 0.5-2.5 MG/3 ML AMPUL NEB SCH ×3 (08:59→20:33)
[2016-05-04] MEDS: CEFEPIME 1 GM/D5W RTU 50 ML IV SCH (10:08)
[2016-05-04] MEDS: LISINOPRIL 10 MG TABLET PO SCH ×2 (10:09→21:19)
[2016-05-04] MEDS: ASPIRIN 81 MG TABLET, ENT COATED PO SCH (10:09)
[2016-05-04] MEDS: DOCUSATE SODIUM 100 MG CAPSULE PO SCH ×2 (10:09→17:07)
[2016-05-04] MEDS: AZITHROMYCIN 250 MG TABLET PO SCH (10:10)
[2016-05-04] MEDS: AMLODIPINE BESYLATE 5 MG TABLET PO SCH ×2 (10:10→21:19)
[2016-05-04] MEDS: FLUTICASONE NASAL SPRAY 50 MCG/SPRY 120 SPRAY/16 GM NASL SCH ×2 (10:10→21:19)
[2016-05-04] MEDS: METOPROLOL TARTRATE 50 MG TABLET PO SCH ×2 (10:10→21:18)
[2016-05-04] MEDS: GUAIFENESIN 600 MG TABLET.SA PO SCH ×2 (10:10→21:19)
[2016-05-04] MEDS: TAMSULOSIN HCL 0.4 MG CAP.SR.24H PO SCH (10:10)
[2016-05-04] MEDS: PREDNISONE 20 MG TABLET PO SCH ×2 (10:11→17:07)
[2016-05-04] MEDS: DUTASTERIDE 0.5 MG CAPSULE PO SCH (10:11)
[2016-05-04] MEDS ORDERED: ASPIRIN 81 MG TABLET, CHEWABLE PO ONE (14:09)
[2016-05-04] MEDS ORDERED: TRAMADOL HCL 50 MG TABLET PO PRN (14:10)
[2016-05-04] MEDS ORDERED: ASPIRIN 325 MG TABLET PO ONE (15:30)
--- NOTE | 2016-05-04 18:00 | PDOC PROGRESS REPORT ---
Subjective Progress Note for:: 05/04/16 Subjective:: Patient reports frontal headache consistent with prior sinus headache. Patient denies chest pain, shortness of breath, abdominal pain, nausea, vomiting, fevers , chills, diarrhea, constipation, headache, new onset weakness. Physical Exam Vital Signs: Temp Pulse Resp BP Pulse Ox 98.3 F 64 18 157/84 H 96 05/04/16 04:27 05/04/16 04:27 05/04/16 04:27 05/04/16 04:27 05/04/16 04:27 Intake & Output 05/03/16 05/04/16 05/05/16 06:59 06:59 06:59 Intake Total 1870 1603 Output Total 200 300 Balance 1670 1303 Weight 70.5 kg 70 kg Exam: General: Awake alert and oriented x3, no acute respiratory distress HEENT: AT/NC, PERRL, EOMI, oropharynx is moist, pink, no scleral icterus, no conjunctival injection, no facial tenderness Neck: No JVD, trachea midline Chest: Clear to auscultation bilaterally CV: Regular rate and rhythm, normal S1 and S2, no murmur, rub, or gallop Abdomen: Soft, nontender to palpation, nondistended, active bowel sounds; no rebound, rigidity, or guarding Extremities: No cyanosis, clubbing or edema Neuro: Cranial nerves II through XII are grossly intact without focal deficits; awake alert and oriented x3 Psych: Normal mood and affect Results Laboratory Results: 05/03/16 05:16 05/03/16 05:16 04/29/16 04/29/16 04/30/16 21:16 21:16 03:40 Creatine Kinase 135 CK-MB (CK-2) 1.06 1.55 Troponin I < 0.012 0.055 04/30/16 04/30/16 04/30/16 03:40 10:37 10:37 Creatine Kinase 186 H 286 H CK-MB (CK-2) 1.92 Troponin I 0.054 Impressions: Chest X-Ray 05/01/16 00:00 IMPRESSION: The diffuse patchy airspace disease noted throughout the lungs has nearly resolved in comparison to the prior study. The pulmonary vascular congestion interstitial prominence is also significantly improved. Assessment & Plan - Diagnosis (1) Multifocal pneumonia Is this a current diagnosis for this admission?: YesPlan: Likely a atypical or possibly gram-negative bacteria. Patient was treated with Levaquin and Augmentin which have good gram-positive coverage. Patient with community-acquired pneumonia. Have transition patient to azithromycin and cefepime. Patient apparently also failed Levaquin as an outpatient. Scheduled nebulized treatments. Sputum culture pending. Stop cefepime. Monitor white count. Repeat chest x-ray appears to be improved. Pending urine Legionella and pneumococcal antibodies. Currently continue azithromycin as patient has a positive blood culture. (2) Acute on chronic renal failure Is this a current diagnosis for this admission?: YesPlan: Improved Baseline CKG stage III. His baseline creatinine is approximately 1.5-1.7. Encourage po intake of fluid (3) Syncope Qualifiers: Syncope type: vasovagal syncope Qualified Code(s): R55 - Syncope and collapse Is this a current diagnosis for this admission?: YesPlan: Patient likely suffered from vasovagal syncope or orthostatic syncope due to his dehydration. Patient only lost control of his bowels after waking. Patient does have chronic prostatic issues which makes his urinary loss more unreliable. His daughter witnessed episode and no isolated tonic-clonic activity was noted. (4) Diarrhea Qualifiers: Diarrhea type: unspecified type Qualified Code(s): R19.7 - Diarrhea , unspecified Is this a current diagnosis for this admission?: Yes (5) Dehydration Is this a current diagnosis for this admission?: Yes (6) Hypotension Qualifiers: Hypotension type: unspecified hypotension type Qualified Code(s): I95.9 - Hypotension, unspecified Is this a current diagnosis for this admission?: Yes - Time Time Spent with patient: 25-34 minutes Medications reviewed and adjusted accordingly: Yes Anticipated discharge: Home Within: within 24 hours
[2016-05-04] MEDS: LORATADINE 10 MG TABLET PO SCH (21:19)
[2016-05-05] MEDS: HEPARIN SOD (PORCINE) 5,000 UNIT/ML 1 ML SYRINGE SUBCUT SCH (05:45)
[2016-05-05 06:46] LABS: HEMATOCRIT 36.5 % (37.9-51.0); HEMOGLOBIN 12.3 g/dL (13.5-17.0); HGB HCT DIFFERENCE 0.4; MEAN CORPUSCULAR HEMOGLOBIN 30.3 pg (27.0-33.4); MEAN CORPUSCULAR HGB CONC 33.7 g/dL (32.0-36.0); MEAN CORPUSCULAR VOLUME 90 fl (80-97); RED BLOOD COUNT 4.05 10^6/uL (4.35-5.55); RED CELL DISTRIBUTION WIDTH 13.8 % (11.5-14.0); WHITE BLOOD COUNT 9.7 10^3/uL (4.0-10.5)
[2016-05-05 07:12] LABS: BAND NEUTROPHILS % (MANUAL) 1 % (3-5); BASOPHILS % (MANUAL) 0 % (0-2); EOSINOPHILS % (MANUAL) 0 % (0-6); LYMPHOCYTES % (MANUAL) 15 % (13-45); TOTAL CELLS COUNTED 100
[2016-05-05 07:16] LABS: TOXIC GRANULATION 1+
[2016-05-05 07:17] LABS: OVALOCYTES 1+
[2016-05-05] MEDS: IPRATROPIUM/ALBUTEROL 0.5-2.5 MG/3 ML AMPUL NEB SCH ×2 (08:01→13:32)
[2016-05-05] MEDS: AMLODIPINE BESYLATE 5 MG TABLET PO SCH (09:45)
[2016-05-05] MEDS: METOPROLOL TARTRATE 50 MG TABLET PO SCH (09:45)
[2016-05-05] MEDS: AZITHROMYCIN 250 MG TABLET PO SCH (09:46)
[2016-05-05] MEDS: PREDNISONE 20 MG TABLET PO SCH (09:46)
[2016-05-05] MEDS: GUAIFENESIN 600 MG TABLET.SA PO SCH (09:46)
[2016-05-05] MEDS: TAMSULOSIN HCL 0.4 MG CAP.SR.24H PO SCH (09:47)
[2016-05-05] MEDS: LISINOPRIL 10 MG TABLET PO SCH (09:47)
[2016-05-05] MEDS: ASPIRIN 81 MG TABLET, ENT COATED PO SCH (09:47)
[2016-05-05] MEDS: DUTASTERIDE 0.5 MG CAPSULE PO SCH (09:48)
[2016-05-05] MEDS: FLUTICASONE NASAL SPRAY 50 MCG/SPRY 120 SPRAY/16 GM NASL SCH (09:48)
[2016-05-05 12:41] VITALS: BP 127/68
--- NOTE | 2016-05-05 22:40 | PDOC DISCHARGE SUMMARY ---
General - Admit/Disc Date/PCP Admission Date/Primary Care Provider: 04/29/16 18:45 REJI BONNER Discharge Date: 05/05/16 - Discharge Diagnosis (1) Multifocal pneumonia Is this a current diagnosis for this admission?: Yes (2) Acute on chronic renal failure Is this a current diagnosis for this admission?: Yes (3) Syncope Is this a current diagnosis for this admission?: Yes (4) Diarrhea Is this a current diagnosis for this admission?: Yes (5) Dehydration Is this a current diagnosis for this admission?: Yes (6) Hypotension Is this a current diagnosis for this admission?: Yes (7) Leukopenia Is this a current diagnosis for this admission?: Yes (8) Thrombocytopenia Is this a current diagnosis for this admission?: Yes - Additional Information Resuscitation Status: Full Code Discharge Diet: Regular Discharge Activity: Activity As Tolerated Home Medications: Dutasteride [Avodart] 0.5 mg PO DAILY 04/29/16 Lisinopril [Prinivil] 20 mg PO Q12 04/29/16 Metoprolol Tartrate [Lopressor 50 mg Tablet] 50 mg PO Q12 04/29/16 Tamsulosin HCl [Flomax 0.4 mg Cap.sr] 0.4 mg PO DAILY 04/29/16 Aspirin [Ecotrin 81 mg EC Tablet] 81 mg PO DAILY 04/30/16 Amlodipine Besylate [Norvasc 5 mg Tablet] 5 mg PO Q12 #60 tablet 05/05/16 Azithromycin 500 mg PO DAILY #5 tablet 05/05/16 Cefdinir [Omnicef 300 mg Capsule] 1 cap PO BID #20 capsule 05/05/16 Fluticasone Propionate [Flonase Nasal [place] 50 Mcg/[place] 16 gm] 1 spray NASL Q12 #1 spray.pump 05/05/16 Guaifenesin [Mucinex Sr 600 mg Tablet.sa] 600 mg PO Q12 #10 tablet.sa 05/05/16 Loratadine [Claritin 10 mg Tablet] 10 mg PO QHS #30 tablet 05/05/16 Prednisone [Deltasone 20 mg Tablet] 20 mg PO BID #10 tablet 05/05/16 History of Present Illness History of Present Illness: ALLAN PAUL is a 85 year old male who presents with syncope. Patient reports he started feeling ill on Thursday and on Saturday had a fever of up to 102.4. He went to his primary care physician and was given Augmentin. Patient continued to have a cough which is productive of clear to greenish sputum. Patient then reported today he wasn't feeling well and was sitting in a chair he subsequently syncopized in the presence of his daughter and had a positive loss of consciousness with a loss of bladder function without any generalized tonic-clonic activity noted. She reports that she helped him to the floor from a chair at the direction of the of 911. She reports the whole episode lasted approximately 5 minutes. After patient awoke he had an episode of diarrhea. There is no hematochezia or melena. He has had some nausea and some slight abdominal tenderness. He was slightly altered afterwards lasting only a minute or 2. She did report that his lip was turning blue during this episode. Patient is found to have pneumonia and have failed outpatient Augmentin here in the emergency department. He is referred to hospital service for admission. Hospital Course Hospital Course: Patient was initially started on Zosyn and Levaquin and subsequently developed a mild amount of leukopenia and thrombocytopenia. Patient was transitioned to cefepime and azithromycin as patient had failed outpatient Levaquin and had developed leukopenia and thrombocytopenia on Zosyn which resolved upon this transition. Urine Legionella was found to be negative. Strep pneumo antibodies was also negative. Patient was also started on a small amount of prednisone which improved his condition rapidly. Patient did suffer from some sinus headaches which were improved with aspirin and Flonase. Patient completed 5 days of IV antibiotics. Patient had one blood culture which was found to be a contaminant. Patient was tapered off of cefepime onto azithromycin alone. Repeat chest x-ray showed interval clearing. On day of discharge, patient reported he was feeling well and ready for discharge. He was discharged home in stable condition in the care of his daughter. Physical Exam Vital Signs: Temp Pulse Resp BP Pulse Ox 97.6 F 71 16 127/68 H 98 05/05/16 15:52 05/05/16 15:52 05/05/16 15:52 05/05/16 15:52 05/05/16 15:52 Intake & Output 05/04/16 05/05/16 05/06/16 06:59 06:59 06:59 Intake Total 1603 1955 600 Output Total 300 Balance 1303 1955 600 Weight 70 kg 70 kg Exam: General: Awake alert and oriented x3, no acute respiratory distress HEENT: AT/NC, PERRL, EOMI, oropharynx is moist, pink, no scleral icterus, no conjunctival injection, no facial tenderness Neck: No JVD, trachea midline Chest: Clear to auscultation bilaterally CV: Regular rate and rhythm, normal S1 and S2, no murmur, rub, or gallop Abdomen: Soft, nontender to palpation, nondistended, active bowel sounds; no rebound, rigidity, or guarding Extremities: No cyanosis, clubbing or edema Neuro: Cranial nerves II through XII are grossly intact without focal deficits; awake alert and oriented x3 Psych: Normal mood and affect Results Laboratory Results: 05/05/16 05:55 05/03/16 05:16 05/05/16 05:55 WBC 9.7 RBC 4.05 L Hgb 12.3 L Hct 36.5 L MCV 90 MCH 30.3 MCHC 33.7 RDW 13.8 Plt Count 204 Seg Neutrophils % Not Reportable Lymphocytes % Not Reportable Monocytes % Not Reportable Eosinophils % Not Reportable Basophils % Not Reportable Absolute Neutrophils Not Reportable Absolute Lymphocytes Not Reportable Absolute Monocytes Not Reportable Absolute Eosinophils Not Reportable Absolute Basophils Not Reportable 05/01/16 12:01 Clean Catch Midstream Legionella Urinary Antigen - Final 04/29/16 04/29/16 04/30/16 21:16 21:16 03:40 Creatine Kinase 135 CK-MB (CK-2) 1.06 1.55 Troponin I < 0.012 0.055 04/30/16 04/30/16 04/30/16 03:40 10:37 10:37 Creatine Kinase 186 H 286 H CK-MB (CK-2) 1.92 Troponin I 0.054 Impressions: Chest X-Ray 05/05/16 00:00 IMPRESSION: Regression of the previously described infiltrate and/or vascular congestion with only few faint bibasilar markings that could represent chronic change. Qualifiers PATEINT BEING DISCHARGED WITH ANY OF THE FOLLOWING DIAGNOSIS?: No Plan Time Spent: Less than 30 Minutes
[2016-05-06 10:39] LABS: STREP PNEUMO TYPE 56 >22.4 ug/mL (>1.3)
== END 2016-05-05 16:38 | disposition home health service (06) | DRG 194 ==
LOC: ER 13:42 → EH 18:38 → UNDOADMIN 18:38 → EH 18:45 → 4W 04-30 00:47
PROVIDERS: ADMIT Family Medicine; ATTEND Family Medicine
DX: J18.9 Pneumonia, unspecified organism (principal); N17.9 Acute kidney failure, unspecified; E86.0 Dehydration; I12.9 Hypertensive chronic kidney disease with stage 1 through stage 4 chronic kidney disease, or unspecified chronic kidney disease; N18.3 Chronic kidney disease, stage 3 (moderate); E78.5 Hyperlipidemia, unspecified; R51 Headache; R19.7 Diarrhea, unspecified; I95.9 Hypotension, unspecified; N40.0 Benign prostatic hyperplasia without lower urinary tract symptoms; Z66 Do not resuscitate; I25.10 Atherosclerotic heart disease of native coronary artery without angina pectoris; Z79.899 Other long term (current) drug therapy; I25.2 Old myocardial infarction; Z85.820 Personal history of malignant melanoma of skin
CPT/HCPCS: 36415; 71020; 80048; 80053; 81001; 82550; 82553; 82607; 83735; 84100; 84443; 84484; 85025; 86317; 87040; 87077; 87086; 87186; 87804; 90686; 93005; 93010; 94640; 94799; 96360; 96361; 99291; J0692; J0696; J1644; J1956; J2543; J7030; J7512; J7620

== ENCOUNTER 2016-07-24 11:54 | Emergency (ER) | payer MEDICARE, BC ==
--- NOTE | 2016-07-24 12:57 | ER Document Report ---
ED Medical Screen (RME) - General Chief Complaint: Nervous Stated Complaint: SHAKY,NERVOUS FEELING Time Seen by Provider: 07/24/16 12:53 Notes: Patient says that he has been feeling nervous for a couple of days. He is experiencing body aching and shaking since last night. Not aware of any actual fever or chills or sweats. Has never had this before. Denies any other symptoms. Specifically, denies any chest pains, shortness of breath or difficulty breathing, UTI symptoms, or vomiting or diarrhea. Denies chest pain. Patient was born with only one kidney. Has had UTIs in the past. Is on Flomax for his prostate. Only has one kidney, heart trouble. High cholesterol. Hypertension. Prostate condition. TRAVEL OUTSIDE OF THE [place] IN LAST 30 DAYS: No - Related Data Allergies/Adverse Reactions: No Known Allergies Allergy (Verified 07/24/16 12:33) Past Medical History - Past Medical History Cardiac Medical History: Reports: Hx Coronary Artery Disease, Hx Heart Attack - several, no cath or stents, Hx Hypercholesterolemia, Hx Hypertension Renal/ Medical History: Denies: Hx Peritoneal Dialysis Past Surgical History: Reports: Hx Orthopedic Surgery - right ankle, Other - Left ear melanoma - Immunizations Hx Diphtheria, Pertussis, Tetanus Vaccination: No Physical Exam - Vital signs Vitals: Temp Pulse Resp BP Pulse Ox 97.5 F 65 18 130/75 H 97 07/24/16 12:10 07/24/16 12:10 07/24/16 12:10 07/24/16 12:10 07/24/16 12:10 Course - Vital Signs Vital signs: Temp Pulse Resp BP Pulse Ox 97.5 F 65 18 130/75 H 97 07/24/16 12:10 07/24/16 12:10 07/24/16 12:10 07/24/16 12:10 07/24/16 12:10
[2016-07-24 13:17] LABS: ABSOLUTE EOSINOPHILS # (AUTO) 0.1 10^3/uL (0.0-0.6); ABSOLUTE LYMPHOCYTES (AUTO) 2.5 10^3/uL (0.5-4.7); ABSOLUTE MONOCYTES (AUTO) 0.6 10^3/uL (0.1-1.4); ABSOLUTE NEUT (AUTO) 4.7 10^3/uL (1.7-8.2); BASOPHILS % (AUTO) 0.3 % (0-2); EOSINOPHILS % (AUTO) 0.9 % (0-6); HEMATOCRIT 39.5 % (37.9-51.0); HEMOGLOBIN 13.4 g/dL (13.5-17.0); HGB HCT DIFFERENCE 0.7; LYMPHOCYTES % (AUTO) 31.8 % (13-45); MEAN CORPUSCULAR HEMOGLOBIN 30.6 pg (27.0-33.4); MEAN CORPUSCULAR HGB CONC 33.8 g/dL (32.0-36.0); MEAN CORPUSCULAR VOLUME 90 fl (80-97); MONOCYTES % (AUTO) 7.7 % (3-13); RED BLOOD COUNT 4.37 10^6/uL (4.35-5.55); RED CELL DISTRIBUTION WIDTH 13.4 % (11.5-14.0); SEGMENTED NEUTROPHILS % (AUTO) 59.3 % (42-78); WHITE BLOOD COUNT 7.9 10^3/uL (4.0-10.5)
[2016-07-24 13:35] LABS: ALANINE AMINOTRANSFERASE 21 U/L (21-72); ALBUMIN 4.1 g/dL (3.5-5.0); ALKALINE PHOSPHATASE 97 U/L (38-126); ANION GAP 10 (5-19); ASPARTATE AMINO TRANSFERASE 20 U/L (17-59); BILIRUBIN,DIRECT 0.4 mg/dL (0.0-0.4); BILIRUBIN,TOTAL 0.8 mg/dL (0.2-1.3); BLOOD UREA NITROGEN 29 mg/dL (7-20); CALCIUM 9.3 mg/dL (8.4-10.2); CARBON DIOXIDE 25 mmol/L (22-30); CHLORIDE 103 mmol/L (98-107); CREATININE RESULT 1.85 mg/dL (0.52-1.25); GLUCOSE 115 mg/dL (75-110); POTASSIUM 4.9 mmol/L (3.6-5.0); SODIUM 138.4 mmol/L (137-145); TOTAL PROTEIN 7.2 g/dL (6.3-8.2)
--- NOTE | 2016-07-24 13:40 | RADIOLOGY REPORT (SQ) ---
EXAM DESCRIPTION: CHEST PA/LAT COMPLETED DATE/TIME: 07/24/2016 1:24 pm REASON FOR STUDY: Body aches and shaking. COMPARISON: None. EXAM PARAMETERS: NUMBER OF VIEWS: two views TECHNIQUE: Digital Frontal and Lateral radiographic views of the chest acquired. RADIATION DOSE: NA LIMITATIONS: none FINDINGS: LUNGS AND PLEURA: Mild peripheral interstitial changes likely chronic. No acute opacities , masses or pneumothorax. No pleural effusion. MEDIASTINUM AND HILAR STRUCTURES: Small hiatal hernia. HEART AND VASCULAR STRUCTURES: Heart normal size. No evidence for failure. BONES: No acute findings. Osteopenia. Moderate thoracic spondylosis. HARDWARE: None in the chest. OTHER: No other significant finding. IMPRESSION: Mild interstitial changes probably chronic. No evidence of acute cardiopulmonary diseas e. TECHNICAL DOCUMENTATION: JOB ID: [id number] [employer]- All Rights Reserved
[2016-07-24 13:47] LABS: CREATINE KINASE MB 0.66 ng/mL (<4.55); TROPONIN I < 0.012 ng/mL
[2016-07-24 16:54] LABS: APPEARANCE,URINE CLEAR; BILIRUBIN,URINE NEGATIVE (NEGATIVE); GLUCOSE, URINE NEGATIVE (NEGATIVE); KETONES,URINE NEGATIVE (NEGATIVE); LEUKOCYTE ESTERASE,URINE NEGATIVE (NEGATIVE); NITRITE,URINE NEGATIVE (NEGATIVE); PROTEIN,URINE NEGATIVE (NEGATIVE); UROBILINOGEN,URINE NEGATIVE mg/dL (<2.0)
--- NOTE | 2016-07-24 17:05 | ER Document Report ---
ED General - General Mode of Arrival: Ambulatory Information source: Patient TRAVEL OUTSIDE OF THE [place] IN LAST 30 DAYS: No - HPI Onset: Yesterday Onset/Duration: Sudden Quality of pain: No pain Associated symptoms: None <SINAN GAY - Last Filed: 07/24/16 17:00> <JENNIFERPOLO ANN - Last Filed: 07/24/16 18:49> - General Chief Complaint: Nervous Stated Complaint: SHAKY,NERVOUS FEELING Time Seen by Provider: 07/24/16 12:53 Notes: Patient is an 85 year old male that presents to the emergency department today with complaints of "feeling nervous/shaky" last night. Patient states he had no symptoms prior to his episode, it just "began all of a sudden". Patient states he has never had these symptoms before. Patient states it felt as if "his insides were trying to shake themselves out". Patient denies a history of anxiety, shortness of breath, pain, or recent medicine changes. (SINAN GAY) - Related Data Allergies/Adverse Reactions: No Known Allergies Allergy (Verified 07/24/16 12:33) Past Medical History - General Information source: Patient - Social History Smoking Status: Never Smoker Cigarette use (# per day): No Chew tobacco use (# tins/day): No Frequency of alcohol use: None Drug Abuse: None Lives with: Family Family History: Reviewed & Not Pertinent, CAD, Malignancy - Past Medical History Cardiac Medical History: Reports: Hx Coronary Artery Disease, Hx Heart Attack - several, no cath or stents, Hx Hypercholesterolemia, Hx Hypertension Renal/ Medical History: Denies: Hx Peritoneal Dialysis Past Surgical History: Reports: Hx Orthopedic Surgery - right ankle, Other - Left ear melanoma - Immunizations Hx Diphtheria, Pertussis, Tetanus Vaccination: No <SINAN GAY - Last Filed: 07/24/16 17:00> Review of Systems - Review of Systems Constitutional: No symptoms reported EENT: No symptoms reported Cardiovascular: denies: Chest pain Respiratory: No symptoms reported Gastrointestinal: No symptoms reported Genitourinary: No symptoms reported Male Genitourinary: No symptoms reported Musculoskeletal: denies: Joint pain Skin: No symptoms reported Hematologic/Lymphatic: No symptoms reported Neurological/Psychological: See HPI, Anxiety -: Yes All other systems reviewed and negative <SINAN GAY - Last Filed: 07/24/16 17:00> Physical Exam - General General appearance: Appears well, Alert In distress: None - HEENT Head: Normocephalic, Atraumatic Eyes: Normal Extraocular movements intact: Yes Mucous membranes: Moist - Respiratory Respiratory status: No respiratory distress Chest status: Nontender Breath sounds: Normal - Cardiovascular Rhythm: Regular Heart sounds: Normal auscultation Murmur: No - Abdominal Inspection: Normal Distension: No distension Tenderness: Nontender - Back Back: Normal, Nontender - Extremities General upper extremity: Normal inspection, Nontender, Normal ROM. No: Edema General lower extremity: Normal inspection, Nontender, Normal ROM. No: Edema - Neurological Neuro grossly intact: Yes Cognition: Normal Orientation: AAOx4 Speech: Normal - Psychological Associated symptoms: Normal affect, Normal mood - Skin Skin Temperature: Warm Skin Moisture: Dry Skin Color: Normal <SINAN GAY - Last Filed: 07/24/16 17:00> Course - Laboratory Result Diagrams: 07/24/16 13:05 07/24/16 13:05 <SINAN GAY - Last Filed: 07/24/16 17:00> - Laboratory Result Diagrams: 07/24/16 13:05 07/24/16 13:05 - Diagnostic Test Radiology reviewed: Reports reviewed <POLO RODRIGUEZ - Last Filed: 07/24/16 18:49> - Re-evaluation Re-evalutation: 07/24/16 No acute findings on blood work, x-ray, EKG. Patient states that he is feeling well although he is somewhat anxious. Patient has no other complaints and has appeared well. Appears well to the family. Patient has been given a copy of his blood work, urine, and chest x-ray. He will be discharged home and is to follow-up with his doctor. Stable for discharge. Return if any worsening or concerning symptoms. Will be given Ativan as needed as needed for anxiety (POLO RODRIGUEZ) - Vital Signs Vital signs: Temp Pulse Resp BP Pulse Ox 97.5 F 74 18 146/70 H 97 07/24/16 12:10 07/24/16 18:19 07/24/16 18:19 07/24/16 18:19 07/24/16 18:19 - Laboratory Laboratory results interpreted by me: 07/24/16 07/24/16 07/24/16 13:05 13:05 13:45 Hgb 13.4 L BUN 29 H Creatinine 1.85 H Est GFR ( Amer) 42 L Est GFR (Non-Af Amer) 35 L Glucose 115 H Urine Blood SMALL H Discharge <SINAN GAY - Last Filed: 07/24/16 17:00> <POLO RODRIGUEZ - Last Filed: 07/24/16 18:49> - Discharge Clinical Impression: Evaluation by medical service required, Anxiety Condition: Stable Disposition: HOME, SELF-CARE Additional Instructions: There are no abnormalities on your x-ray, blood work, or EKG today. Please follow-up with your doctor and return if you have any worsening or concerning symptoms. Prescriptions: Lorazepam [Ativan 0.5 mg Tablet] 0.5 mg PO BIDP PRN #30 tab PRN Reason: Referrals: JUDITH COBURN, [facility] [Primary Care Provider] - Follow up as needed Scribe Attestation: 07/24/16 18:49 I personally performed the services described in the documentation, reviewed and edited the documentation which was dictated to the scribe in my presence, and it accurately records my words and actions. (POLO RODRIGUEZ) Scribe Documentation - Scribe Written by Jing:: Jing العلي, 07/24/16 [id number] acting as scribe for :: Jennifer <SINAN GAY - Last Filed: 07/24/16 17:00>
[2016-07-24 18:21] VITALS: BP 146/70
--- NOTE | 2016-07-24 18:37 | EKG REPORT ---
SEVERITY:- ABNORMAL ECG - SINUS RHYTHM PROBABLE LEFT ATRIAL ABNORMALITY CONSIDER INFERIOR INFARCT BORDERLINE ST ELEVATION, LATERAL LEADS : Confirmed by: Zacarias Ugarte MD 24-Jul-2016 18:36:58
== END 2016-07-24 18:19 | disposition home or self-care (01) ==
LOC: ER 11:54
DX: F41.9 Anxiety disorder, unspecified (principal); I25.10 Atherosclerotic heart disease of native coronary artery without angina pectoris; I25.2 Old myocardial infarction; I10 Essential (primary) hypertension; Z85.820 Personal history of malignant melanoma of skin
CPT/HCPCS: 36415; 71020; 80053; 81001; 82553; 84443; 84484; 85025; 87040; 93005; 93010; 99284

== ENCOUNTER → 2016-07-31 | Outpatient (CLI) | payer MEDICARE, BC ==
[2016-07-31 10:50] LABS: ANION GAP 12 (5-19); BLOOD UREA NITROGEN 28 mg/dL (7-20); CALCIUM 9.3 mg/dL (8.4-10.2); CARBON DIOXIDE 23 mmol/L (22-30); CHLORIDE 107 mmol/L (98-107); CHOLESTEROL 127.87 mg/dL (0-200); CREATININE RESULT 1.87 mg/dL (0.52-1.25); Direct HDL 33 mg/dL (>40); GLUCOSE 91 mg/dL (75-110); POTASSIUM 5.1 mmol/L (3.6-5.0); SODIUM 141.6 mmol/L (137-145); TRIGLYCERIDES 125 mg/dL (<150)
[2016-07-31 11:01] LABS: DIRECT LDL 55 mg/dL (<100)
== END ==
LOC: OD 09:28
PROVIDERS: ATTEND Internal Medicine Cardiovascular Disease
DX: N18.3 Chronic kidney disease, stage 3 (moderate) (principal); E78.00 Pure hypercholesterolemia, unspecified
CPT/HCPCS: 36415; 80048; 80061

== ENCOUNTER → 2016-11-05 | Outpatient (CLI) | payer MEDICARE, BC ==
[2016-11-05 12:22] LABS: ANION GAP 9 (5-19); BLOOD UREA NITROGEN 25 mg/dL (7-20); CALCIUM 9.2 mg/dL (8.4-10.2); CARBON DIOXIDE 26 mmol/L (22-30); CHLORIDE 108 mmol/L (98-107); CREATININE RESULT 1.82 mg/dL (0.52-1.25); GLUCOSE 93 mg/dL (75-110); POTASSIUM 4.8 mmol/L (3.6-5.0); SODIUM 142.9 mmol/L (137-145)
== END ==
LOC: OD 11:22
PROVIDERS: ATTEND Internal Medicine Cardiovascular Disease
DX: N18.3 Chronic kidney disease, stage 3 (moderate) (principal)
CPT/HCPCS: 36415; 80048

== ENCOUNTER → 2017-09-23 | Outpatient (CLI) | payer MEDICARE, BC ==
[2017-09-23 11:22] LABS: ANION GAP 11 (5-19); BLOOD UREA NITROGEN 24 mg/dL (7-20); CARBON DIOXIDE 24 mmol/L (22-30); CHLORIDE 106 mmol/L (98-107); CHOLESTEROL 198.55 mg/dL (0-200); GLUCOSE 97 mg/dL (75-110); POTASSIUM 4.9 mmol/L (3.6-5.0); SODIUM 140.8 mmol/L (137-145); TRIGLYCERIDES 166 mg/dL (<150)
[2017-09-23 11:32] LABS: DIRECT LDL 111 mg/dL (<100)
[2017-09-23 11:37] LABS: VLDL CHOLESTEROL 33.2 mg/dL (10-31)
== END ==
LOC: OD 10:41
PROVIDERS: ATTEND Internal Medicine Cardiovascular Disease
DX: E78.00 Pure hypercholesterolemia, unspecified (principal); I10 Essential (primary) hypertension; Z79.899 Other long term (current) drug therapy
CPT/HCPCS: 36415; 80048; 80061

== ENCOUNTER → 2018-02-03 | Outpatient (CLI) | payer MEDICARE, BC ==
[2018-02-03 12:20] LABS: ALANINE AMINOTRANSFERASE 12 U/L (21-72); ALKALINE PHOSPHATASE 118 U/L (38-126); ANION GAP 13 (5-19); ASPARTATE AMINO TRANSFERASE 16 U/L (17-59); BILIRUBIN,DIRECT 0.2 mg/dL (0.0-0.4); BILIRUBIN,TOTAL 0.4 mg/dL (0.2-1.3); BLOOD UREA NITROGEN 23 mg/dL (7-20); CALCIUM 9.4 mg/dL (8.4-10.2); CARBON DIOXIDE 24 mmol/L (22-30); CHLORIDE 105 mmol/L (98-107); CHOLESTEROL 199.92 mg/dL (0-200); GLUCOSE 101 mg/dL (75-110); POTASSIUM 5.2 mmol/L (3.6-5.0); SODIUM 141.7 mmol/L (137-145); TOTAL PROTEIN 7.3 g/dL (6.3-8.2); TRIGLYCERIDES 166 mg/dL (<150)
[2018-02-03 12:31] LABS: DIRECT LDL 121 mg/dL (<100)
[2018-02-03 12:36] LABS: VLDL CHOLESTEROL 33.2 mg/dL (10-31)
== END ==
LOC: OD 11:20
PROVIDERS: ATTEND Internal Medicine Cardiovascular Disease
DX: E78.00 Pure hypercholesterolemia, unspecified (principal); Z79.899 Other long term (current) drug therapy
CPT/HCPCS: 36415; 80048; 80061; 80076

== ENCOUNTER → 2018-03-01 | Outpatient (CLI) | payer MEDICARE, BC ==
[2018-03-01 12:33] LABS: ANION GAP 9 (5-19); BLOOD UREA NITROGEN 30 mg/dL (7-20); CALCIUM 9.3 mg/dL (8.4-10.2); CARBON DIOXIDE 23 mmol/L (22-30); CHLORIDE 108 mmol/L (98-107); GLUCOSE 101 mg/dL (75-110); POTASSIUM 4.7 mmol/L (3.6-5.0); SODIUM 139.7 mmol/L (137-145)
== END ==
LOC: OD 11:09
PROVIDERS: ATTEND Internal Medicine Cardiovascular Disease
DX: I10 Essential (primary) hypertension (principal); Z79.899 Other long term (current) drug therapy
CPT/HCPCS: 36415; 80048

== ENCOUNTER → 2018-04-07 | Outpatient (CLI) | payer MEDICARE, BC ==
[2018-04-07 13:54] LABS: HEMOGLOBIN 12.8 g/dL (13.5-17.0); MEAN CORPUSCULAR HEMOGLOBIN 31.2 pg (27.0-33.4); MEAN CORPUSCULAR HGB CONC 34.6 g/dL (32.0-36.0); MEAN CORPUSCULAR VOLUME 90 fl (80-97); PLATELET COUNT 218 10^3/uL (150-450); RED CELL DISTRIBUTION WIDTH 13.9 % (11.5-14.0); WHITE BLOOD COUNT 7.7 10^3/uL (4.0-10.5)
[2018-04-07 14:09] LABS: APPEARANCE,URINE CLEAR; BILIRUBIN,URINE NEGATIVE (NEGATIVE); COLOR,URINE YELLOW; GLUCOSE, URINE NEGATIVE (NEGATIVE); KETONES,URINE NEGATIVE (NEGATIVE); LEUKOCYTE ESTERASE,URINE NEGATIVE (NEGATIVE); NITRITE,URINE NEGATIVE (NEGATIVE); PROTEIN,URINE NEGATIVE (NEGATIVE); URINE SPECIFIC GRAVITY 1.013; UROBILINOGEN,URINE NEGATIVE mg/dL (<2.0)
[2018-04-07 14:25] LABS: ANION GAP 9 (5-19); BLOOD UREA NITROGEN 24 mg/dL (7-20); CALCIUM 8.8 mg/dL (8.4-10.2); CARBON DIOXIDE 25 mmol/L (22-30); CHLORIDE 108 mmol/L (98-107); GLUCOSE 115 mg/dL (75-110); POTASSIUM 5.1 mmol/L (3.6-5.0); SODIUM 141.9 mmol/L (137-145)
== END ==
LOC: OD 13:05
PROVIDERS: ATTEND Physician Assistant Medical
DX: I12.9 Hypertensive chronic kidney disease with stage 1 through stage 4 chronic kidney disease, or unspecified chronic kidney disease (principal); N18.3 Chronic kidney disease, stage 3 (moderate); E87.5 Hyperkalemia
CPT/HCPCS: 36415; 80048; 81001; 85027

== ENCOUNTER → 2018-08-31 | Outpatient (CLI) | payer MEDICARE, BC ==
[2018-08-31 10:09] LABS: ANION GAP 8 (5-19); BLOOD UREA NITROGEN 31 mg/dL (7-20); CALCIUM 8.9 mg/dL (8.4-10.2); CARBON DIOXIDE 25 mmol/L (22-30); CHLORIDE 108 mmol/L (98-107); CHOLESTEROL 116.29 mg/dL (0-200); GLUCOSE 103 mg/dL (75-110); POTASSIUM 4.9 mmol/L (3.6-5.0); TRIGLYCERIDES 125 mg/dL (<150)
[2018-08-31 10:20] LABS: DIRECT LDL 61 mg/dL (<100)
== END ==
LOC: OD 08:44
PROVIDERS: ATTEND Internal Medicine Cardiovascular Disease
DX: E87.5 Hyperkalemia (principal); N18.3 Chronic kidney disease, stage 3 (moderate); E78.00 Pure hypercholesterolemia, unspecified; Z79.899 Other long term (current) drug therapy
CPT/HCPCS: 36415; 80048; 80061; 84443

== ENCOUNTER → 2018-11-29 | Outpatient (CLI) | payer MEDICARE, BC ==
[2018-11-29 13:03] LABS: ALBUMIN 3.8 g/dL (3.5-5.0); ALKALINE PHOSPHATASE 103 U/L (38-126); ANION GAP 9 (5-19); ASPARTATE AMINO TRANSFERASE 16 U/L (17-59); BILIRUBIN,DIRECT 0.2 mg/dL (0.0-0.4); BILIRUBIN,TOTAL 0.6 mg/dL (0.2-1.3); BLOOD UREA NITROGEN 27 mg/dL (7-20); CALCIUM 9.1 mg/dL (8.4-10.2); CARBON DIOXIDE 23 mmol/L (22-30); CHLORIDE 106 mmol/L (98-107); CHOLESTEROL 136.63 mg/dL (0-200); GLUCOSE 91 mg/dL (75-110); POTASSIUM 4.9 mmol/L (3.6-5.0); TOTAL PROTEIN 6.6 g/dL (6.3-8.2); TRIGLYCERIDES 144 mg/dL (<150)
[2018-11-29 13:14] LABS: DIRECT LDL 81 mg/dL (<100)
== END ==
LOC: OD 11:49
PROVIDERS: ATTEND Physician Assistant
DX: E78.00 Pure hypercholesterolemia, unspecified (principal); I10 Essential (primary) hypertension; Z79.899 Other long term (current) drug therapy
CPT/HCPCS: 36415; 80048; 80061; 80076

== ENCOUNTER → 2018-12-30 | Outpatient (CLI) | payer MEDICARE, BC ==
[2018-12-30 11:35] LABS: HEMATOCRIT 35.7 % (37.9-51.0); HEMOGLOBIN 12.2 g/dL (13.5-17.0); MEAN CORPUSCULAR HEMOGLOBIN 31.6 pg (27.0-33.4); MEAN CORPUSCULAR HGB CONC 34.2 g/dL (32.0-36.0); MEAN CORPUSCULAR VOLUME 92 fl (80-97); PLATELET COUNT 193 10^3/uL (150-450); RED BLOOD COUNT 3.87 10^6/uL (4.35-5.55); RED CELL DISTRIBUTION WIDTH 13.8 % (11.5-14.0)
[2018-12-30 12:02] LABS: ANION GAP 8 (5-19); BLOOD UREA NITROGEN 34 mg/dL (7-20); CALCIUM 8.9 mg/dL (8.4-10.2); CARBON DIOXIDE 23 mmol/L (22-30); CHLORIDE 109 mmol/L (98-107); GLUCOSE 96 mg/dL (75-110)
[2018-12-30 12:21] LABS: APPEARANCE,URINE CLEAR; BILIRUBIN,URINE NEGATIVE (NEGATIVE); COLOR,URINE YELLOW; GLUCOSE, URINE NEGATIVE (NEGATIVE); KETONES,URINE NEGATIVE (NEGATIVE); LEUKOCYTE ESTERASE,URINE NEGATIVE (NEGATIVE); NITRITE,URINE NEGATIVE (NEGATIVE); PROTEIN,URINE NEGATIVE (NEGATIVE); URINE SPECIFIC GRAVITY 1.011; UROBILINOGEN,URINE NEGATIVE mg/dL (<2.0)
== END ==
LOC: OD 10:51
PROVIDERS: ATTEND Physician Assistant Medical
DX: I12.9 Hypertensive chronic kidney disease with stage 1 through stage 4 chronic kidney disease, or unspecified chronic kidney disease (principal); N18.3 Chronic kidney disease, stage 3 (moderate); E87.5 Hyperkalemia
CPT/HCPCS: 36415; 80048; 81001; 85027

== ENCOUNTER → 2019-04-20 | Outpatient (CLI) | payer MEDICARE, BC ==
[2019-04-20 14:40] LABS: ANION GAP 8 (5-19); BLOOD UREA NITROGEN 31 mg/dL (7-20); CALCIUM 8.8 mg/dL (8.4-10.2); CARBON DIOXIDE 24 mmol/L (22-30); CHLORIDE 106 mmol/L (98-107); GLUCOSE 148 mg/dL (75-110); POTASSIUM 5.2 mmol/L (3.6-5.0)
== END ==
LOC: OD 13:20
PROVIDERS: ATTEND Internal Medicine Cardiovascular Disease
DX: I10 Essential (primary) hypertension (principal); N18.3 Chronic kidney disease, stage 3 (moderate)
CPT/HCPCS: 36415; 80048

== ENCOUNTER → 2019-05-11 | Outpatient (CLI) | payer MEDICARE, BC ==
[2019-05-11 13:27] LABS: ABSOLUTE EOSINOPHILS # (AUTO) 0.1 10^3/uL (0.0-0.6); ABSOLUTE LYMPHOCYTES (AUTO) 2.6 10^3/uL (0.5-4.7); ABSOLUTE MONOCYTES (AUTO) 0.4 10^3/uL (0.1-1.4); ABSOLUTE NEUT (AUTO) 2.9 10^3/uL (1.7-8.2); BASOPHILS % (AUTO) 0.7 % (0-2); EOSINOPHILS % (AUTO) 2.2 % (0-6); HEMOGLOBIN 12.8 g/dL (13.5-17.0); LYMPHOCYTES % (AUTO) 42.6 % (13-45); MEAN CORPUSCULAR HGB CONC 33.6 g/dL (32.0-36.0); MEAN CORPUSCULAR VOLUME 92 fl (80-97); MONOCYTES % (AUTO) 7.2 % (3-13); PLATELET COUNT 209 10^3/uL (150-450); RED BLOOD COUNT 4.12 10^6/uL (4.35-5.55); RED CELL DISTRIBUTION WIDTH 13.9 % (11.5-14.0); SEGMENTED NEUTROPHILS % (AUTO) 47.3 % (42-78); TOTAL CELLS COUNTED % (AUTO) 100 %
[2019-05-11 13:39] LABS: APPEARANCE,URINE CLEAR; BILIRUBIN,URINE NEGATIVE (NEGATIVE); COLOR,URINE YELLOW; GLUCOSE, URINE NEGATIVE (NEGATIVE); KETONES,URINE NEGATIVE (NEGATIVE); LEUKOCYTE ESTERASE,URINE NEGATIVE (NEGATIVE); NITRITE,URINE NEGATIVE (NEGATIVE); PROTEIN,URINE NEGATIVE (NEGATIVE); URINE SPECIFIC GRAVITY 1.009; UROBILINOGEN,URINE NEGATIVE mg/dL (<2.0)
[2019-05-11 13:41] LABS: ADD MANUAL MICROSCOPIC YES
[2019-05-11 13:42] LABS: HYALINE CASTS, URINE 0-1 /LPF
[2019-05-11 13:49] LABS: ANION GAP 10 (5-19); BLOOD UREA NITROGEN 23 mg/dL (7-20); CALCIUM 8.6 mg/dL (8.4-10.2); CARBON DIOXIDE 25 mmol/L (22-30); CHLORIDE 105 mmol/L (98-107); GLUCOSE 105 mg/dL (75-110); PHOSPHORUS 3.5 mg/dL (2.5-4.5); POTASSIUM 4.9 mmol/L (3.6-5.0)
== END ==
LOC: OD 12:49
PROVIDERS: ATTEND Physician Assistant Medical
DX: I12.9 Hypertensive chronic kidney disease with stage 1 through stage 4 chronic kidney disease, or unspecified chronic kidney disease (principal); N18.4 Chronic kidney disease, stage 4 (severe)
CPT/HCPCS: 36415; 80048; 81001; 83970; 84100; 85025

== ENCOUNTER → 2019-08-01 | Outpatient (CLI) | payer MEDICARE, BC ==
[2019-08-01 13:00] LABS: ANION GAP 8 (5-19); BLOOD UREA NITROGEN 28 mg/dL (7-20); CALCIUM 8.9 mg/dL (8.4-10.2); CARBON DIOXIDE 25 mmol/L (22-30); CHLORIDE 105 mmol/L (98-107); GLUCOSE 98 mg/dL (75-110); POTASSIUM 5.2 mmol/L (3.6-5.0)
== END ==
LOC: OD 11:34
PROVIDERS: ATTEND Physician Assistant
DX: I12.9 Hypertensive chronic kidney disease with stage 1 through stage 4 chronic kidney disease, or unspecified chronic kidney disease (principal); N18.3 Chronic kidney disease, stage 3 (moderate); E87.5 Hyperkalemia
CPT/HCPCS: 36415; 80048